=== PATIENT | female | born 1955 | race Caucasian/White ===

== ENCOUNTER 2019-11-02 06:38 | Inpatient (IN) | payer MEDICARE, SELFPAY ==
[2019-11-02] VITALS (9 sets, daily range): BP systolic 119–167; BP diastolic 56–92; PULSE 61–107; RESP 13–25; TEMP 36.1–37.2; O2SAT 85–100; BMI 36.3
--- NOTE | ~2019-11-02 | XR_ITS ---
EXAMINATION: XR sm bowel follow through WS DATE: 11/03/2019 10:10 INDICATION: Small bowel obstruction TECHNIQUE: Equipment Operator radiograph of the abdomen was obtained. Oral contrast was administered, and sequent ial radiographs of the abdomen were obtained until oral contrast was noted to be in the proximal colo n. COMPARISON: CT dated 11/02/2019 FINDINGS: Equipment Operator radiograph demonstrates nasogastric tube tip projecting over the proximal body of the stomach. Cholecystectomy clips in right upper quadrant. 6 mm stone at the lower pole of the right kidney. Excr eted contrast in the bladder from the prior contrast enhanced CT. Right-sided pain pump with intrathe robinson catheter which projects over the lumbar and lower thoracic spine with distal tip collimated beyon d the cephalad margin of the [id number]. Small amount of gas within nondilated small bowel. Small amount of stool at the cecum. Transit time from the stomach to proximal colon was approximately 1 hour and 15 minutes. There is nor mal caliber and mucosal fold pattern throughout the small bowel. Terminal ileum is normal. IMPRESSION: 1. Unremarkable small bowel follow-through. 2. Right nephrolithiasis. Reviewed, dictated and finalized at location A.
--- NOTE | ~2019-11-02 | XR_ITS ---
EXAMINATION: XR abdomen NG/feed tube insert INDICATION: Nasogastric tube insertion TECHNIQUE: Portable AP KUB-[id number] at 0910 hours COMPARISON: None available FINDINGS: The nasogastric tube is in the stomach. There are multiple mildly dilated loops of small luis wel in the mid abdomen. Contrast from earlier CT examination partially opacifies the urinary tract. C holecystectomy clips are noted in the right upper quadrant. There is a pain pump catheter projecting over the central spinal canal ending with its tip at the level of the T9 vertebral body. IMPRESSION: 1. Nasogastric tube in the stomach. 2. Dilated small bowel, consistent with ileus versus obstruction. Reviewed, dictated and finalized at location A.
--- NOTE | ~2019-11-02 | XR_ITS ---
EXAMINATION: XR abdomen obstructive series DATE: 11/04/2019 09:00 INDICATION: Nausea, recent small bowel obstruction TECHNIQUE: Upright and supine views of the abdomen were obtained. COMPARISON: 11/03/2019 FINDINGS: Enteric contrast from yesterday's small bowel follow-through partially opacifies the colon. The nasogastric tube is in the stomach. No persistently dilated loops of small bowel are seen. Contr ast material is seen at the level of the rectum. Pain catheter pump tubing projects over the T9 verte bral body. There is severe left and moderate right hip osteoarthritis. IMPRESSION: 1. Nonobstructive bowel gas pattern. Reviewed, dictated and finalized at location A.
--- NOTE | ~2019-11-02 | XR_ITS ---
EXAMINATION: XR chest 2V DATE: 11/03/2019 14:15 INDICATION: Increasing shortness of breath requiring supplemental oxygen TECHNIQUE: PA and lateral views of the chest were obtained. COMPARISON: Chest radiograph dated 07/06/2019 FINDINGS: Mild blunting at the right posterior sulcus which could represent atelectasis or tiny pleural effusio n. Remainder of the lungs are clear. No pulmonary edema or pneumothorax. The cardiomediastinal silhou ette is normal. Nasogastric tube with distal tip in proximal side port in the body of the stomach. Ch olecystectomy clips in the right upper quadrant. Oral contrast material in the colon from earlier sma ll bowel follow-through. IMPRESSION: 1. Mild atelectasis versus tiny pleural effusion at the right posterior sulcus. Reviewed, dictated and finalized at location A.
--- NOTE | ~2019-11-02 | CT_ITS ---
EXAMINATION: CT abdomen pelvis w con INDICATION: Periumbilical pain, nausea TECHNIQUE: Computed tomographic images of the abdomen and pelvis were obtained after the administrati on of 100 cc of Omnipaque 350 intravenous contrast. The dose-length product (DLP) was 1262.32 mGy-cm. Automated exposure control and iterative reconstruction technique were employed. COMPARISON: 09/13/2007 FINDINGS: The lung bases are clear. The heart size is normal. The gallbladder is surgically absent. T here is mild enlargement of the common bile duct and central intrahepatic ducts which is likely due t o post cholecystectomy state. There is a small sliding hiatal hernia. There are multiple chronic hypo attenuating lesions of the spleen which likely represent hemangiomas or lymphangiomas. The pancreas a nd adrenal glands are normal. There is calcified atherosclerosis of the aorta and many of the other a rteries. No pathologically enlarged abdominal or pelvic lymph nodes are identified. There are mildly dilated small bowel loops in the midabdomen. There is minimal edema is present in the small bowel mes entery. There is relative change in caliber of the small bowel in the right pelvis beyond which the d istal small bowel and colon are decompressed. There is no free intraperitoneal gas. There is a chroni c burst fracture of L1. A pain pump is implanted in the right abdominal subcutaneous tissues with the catheter ending in the central spinal canal at the level of the T9 vertebral body. There is moderate lumbar spondylosis. IMPRESSION: 1. Mildly dilated small bowel consistent with ileus versus partial obstruction. Reviewed, dictated and finalized at location A.
[2019-11-02] MEDS: MORPHINE SULFATE 4 MG/ML INJ IV PUSH ×2 (07:05→10:42)
[2019-11-02] MEDS: ONDANSETRON INJ 4 MG/2 ML VIAL IV PUSH ×2 (07:05→20:09)
[2019-11-02 07:09] LABS: Basophils Absolute Auto 0.1 K/mm3 (0.0-0.1); Basophils Percent Auto 0.6 % (0.2-1.2); Eosinophils Absolute Auto 0.2 K/mm3 (0-0.3); Eosinophils Percent Auto 1.8 % (0-4.4); Hematocrit 45.2 % (37.0-47.0); Hemoglobin 14.4 g/dL (12.0-15.0); Immature Granulocyte Absolute 0.03 K/mm3 (0.00-0.031); Immature Granulocyte Percent A 0.2 % (0-0.5); Lymphocytes Absolute Auto 2.28 K/mm3 (0.9-3.2); Lymphocytes Percent Auto 17.6 % (18.3-44.2); Mean Corpuscular HGB Conc 31.9 g/dl (32-36); Mean Corpuscular Hemoglobin 29.4 pg (26-34); Mean Corpuscular Volume 92.4 fl (80-100); Mean Platelet Volume 9.9 fl (7.4-10.4); Monocytes Absolute Auto 0.9 K/mm3 (0.1-0.6); Monocytes Percent Auto 6.7 % (2.6-8.5); Neutrophils Absolute Auto 9.5 K/mm3 (1.3-6.7); Neutrophils Percent Auto 73.1 % (45.5-73.1); Platelet Count Result 293 k/mm3 (150-375); Red Blood Count 4.89 M/mm3 (4.2-5.4); Red Cell Distribution Width 13.7 % (11.5-14.5)
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
[2019-11-02 07:21] LABS: Alanine Aminotransferase 14 U/L (4-35); Albumin Level 4.4 g/dL (3.5-5.1); Alkaline Phosphatase 95 U/L (38-126); Aspartate Amino Transferase 26 U/L (14-36); Bilirubin,Total 0.6 mg/dL (0.2-1.3); Blood Urea Nitrogen 18 mg/dL (7-17); Carbon Dioxide 32 mmol/L (22-30); Chloride 98 mmol/L (98-107); Estimated Glomerular Filt Rate 50; Glucose 217 mg/dL (65-105); Lipase 52 U/L (23-300); Potassium 3.6 mmol/L (3.4-5.0); Sodium 139 mmol/L (137-145)
[2019-11-02 07:26] LABS: Add Urine Microscopic? YES; Appearance Urine Clear (Clear); Bacteria Urine Trace /hpf; Bilirubin Urine Negative (Negative); Color Urine Yellow (Yellow); Glucose Urine UA Negative (Negative); Ketones Urine Negative (Negative); Leukocyte Esterase Ur 2+ LEU/UL (Negative); Mucus Urine Moderate /lpf; Nitrate Urine Positive (Negative); Protein Urine 1+ mg/dL (Negative); Specific Grav Ur 1.019 (1.001-1.035); Squamous Epithelial Cell Urine Rare /hpf (Few); Urobilinogen Urine Negative mg/dL (<2.0); WBC Urine >75 /hpf
[2019-11-02 07:27] LABS: Blood Urine Negative (Negative)
[2019-11-02] MEDS: BENZOCAINE/TETRACAINE SPRAY (*SP) 56 ML AEROSOL 1 SPRAY (09:00)
--- NOTE | 2019-11-02 11:24 | ADMGEN ---
This patient, Petty Marsh, was admitted to Medical Room 243-. Patient/family oriented to hospital policies and general routines including ID bracelet, bed and alarms, visiting hours, pain management, procedures, bathroom and other care routines, personal items, smoking policy, room service/diet, and visiting hours. Valuables list has been completed. Information on how to activate the Rapid Response Team has been discussed. Patient/Family are encouraged to report perceived risks to care and to ask questions if they do not understand what they are told or what they should do.
[2019-11-02] MEDS: SODIUM CHLORIDE 0.9% IV 1,000 ML 125 ML IV CONT ×2 (11:56→20:03)
--- NOTE | 2019-11-02 12:30 | ECG_ITS ---
Measurements Intervals [place] Rate: 102 P: 49 [place]: 148 QRS: 19 QRSD: 86 T: 46 QT: 330 QTc: 431 Interpretive Statements SINUS TACHYCARDIA DELAYED PRECORDIAL R/S TRANSITION ABNORMAL ECG Electronically Signed On 11-02-2019 13:59:33 CDT by Yvon Singleton D.O.
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
[2019-11-02 15:30] LABS: Hemoglobin A1C 5.7 % (<5.7)
--- NOTE | 2019-11-02 17:23 | PM.CNGS ---
Assessment and Plan Assessment and plan (1) Partial obstruction of small intestine: Onset Date: ~11/02/19 Code(s): K56.600 - Partial intestinal obstruction, unspecified as to cause Status: Acute Assessment and Plan: Since patient has partial small-bowel obstruction versus ileus I agree with proceeding to a Gastrografin small-bowel follow-through tomorrow through the NG tube. Will follow with you. This ileus could be secondary to her urinary tract infection. (2) UTI (urinary tract infection): Onset Date: Unknown Code(s): N39.0 - Urinary tract infection, site not specified Status: Acute Assessment and Plan: Urine culture pending and I agree with starting antibiotics. This may be the source of her ileus. (3) Diabetes: Onset Date: Unknown Code(s): E11.9 - Type 2 diabetes mellitus without complications Status: Chronic (4) Restless leg syndrome: Onset Date: Unknown Code(s): G25.81 - Restless legs syndrome Status: Acute (5) Chronic obstructive pulmonary disease, unspecified: Onset Date: Unknown Code(s): J44.9 - Chronic obstructive pulmonary disease, unspecified Status: Chronic (6) Dyslipidemia: Onset Date: Unknown Code(s): E78.5 - Hyperlipidemia, unspecified Status: Acute (7) Chronic diastolic (congestive) heart failure: Onset Date: Unknown Code(s): I50.32 - Chronic diastolic (congestive) heart failure Status: Chronic Assessment and Plan: Hospitalist is monitoring and will return to her usual medicines when NG tube is removed. (8) Essential (primary) hypertension: Onset Date: Unknown Code(s): I10 - Essential (primary) hypertension Status: Acute Assessment and Plan: Hospitalist is following and she will resume her usual meds when the NG tube was removed. (9) Obesity (BMI 35.0-39.9 without comorbidity): Code(s): E66.9 - Obesity, unspecified Status: Acute Assessment and Plan: Patient states she has lost some weight over the last 2 years. Apparently her heart failure has improved over that time also. History of Present Illness Consult details Consult date: 11/03/19 Reason for consult: other (Ileus versus partial small bowel obstruction by CT) Requesting physician: Larisa Monae NP Narrative: Mrs Petty Marsh is a 64 year old white female who has a history of having chronic back pain and has a pain pump. She has baclofen and hydromorphone in her pain pump. She has not had any prior history of problems with small-bowel obstruction. Nor has she had any problem with constipation. The patient had severe epigastric and periumbilical discomfort starting last night. She had some nausea and vomiting as well. She stated that she had a normal bowel movement today. Her pain got worse with movement and lying still helped her pain. She did not take any other medications nor did she take any of her routine medications today. Patient had a CT of the abdomen pelvis with contrast today during her evaaluation in the ED which was read as mildly dilated mid small bowel consistent with ileus versus partial obstruction. The distal half the small bowel and the colon were decompressed. Also noted was some mild edema of the small bowel mesentery. An NG tube was placed in the left nare. Labs were fairly unremarkable with fairly normal electrolytes however she had a significant abnormal UA showing 75 WBCs per high-power field and 2+ leukocyte esterase . She was given Zofran, morphine, and started on ceftriaxone for urinary tract infection in the emergency room. Review of Systems Constitutional: Constitutional: Reports as per HPI and Denies headache(s) Eyes: Eyes: Denies loss of vision and Denies eye pain ENT: Reports Normal hearing present, Denies change in voice, Denies dizziness and Denies headache(s) Cardiovascular: Cardiovascular: Denies chest zoey
[2019-11-02 18:13] LABS: Glucose Point of Care 87 (65-105)
[2019-11-03 00:30] LABS: Glucose Point of Care 88 (65-105)
[2019-11-03 04:00] VITALS: BP 122/58; PULSE 76; RESP 22; TEMP 37.3; O2SAT 95
[2019-11-03] MEDS: SODIUM CHLORIDE 0.9% IV 1,000 ML 125 ML IV CONT (04:51)
[2019-11-03] MEDS: MORPHINE SULFATE 4 MG/ML INJ IV PUSH ×2 (04:53→09:34)
[2019-11-03 05:03] LABS: Basophils Percent Auto 0.4 % (0.2-1.2); Eosinophils Absolute Auto 0.1 K/mm3 (0-0.3); Hematocrit 41.2 % (37.0-47.0); Immature Granulocyte Absolute 0.03 K/mm3 (0.00-0.031); Immature Granulocyte Percent A 0.3 % (0-0.5); Lymphocytes Absolute Auto 1.61 K/mm3 (0.9-3.2); Lymphocytes Percent Auto 16.5 % (18.3-44.2); Mean Corpuscular HGB Conc 31.6 g/dl (32-36); Mean Corpuscular Hemoglobin 29.9 pg (26-34); Mean Corpuscular Volume 94.7 fl (80-100); Monocytes Percent Auto 9.8 % (2.6-8.5); Platelet Count Result 244 k/mm3 (150-375); Red Blood Count 4.35 M/mm3 (4.2-5.4); Red Cell Distribution Width 13.8 % (11.5-14.5); White Blood Count 9.8 K/mm3 (4.5-10.0)
[2019-11-03 05:16] LABS: Alanine Aminotransferase 13 U/L (4-35); Albumin Level 3.5 g/dL (3.5-5.1); Alkaline Phosphatase 60 U/L (38-126); Aspartate Amino Transferase 23 U/L (14-36); Bilirubin,Total 0.7 mg/dL (0.2-1.3); Blood Urea Nitrogen 16 mg/dL (7-17); Carbon Dioxide 35 mmol/L (22-30); Chloride 103 mmol/L (98-107); Estimated CRCL calculation 58 ml/min; Estimated Glomerular Filt Rate > 60; Glucose 103 mg/dL (65-105); Magnesium 2.2 mg/dL (1.6-2.3); Sodium 142 mmol/L (137-145)
[2019-11-03 06:16] LABS: Glucose Point of Care 99 (65-105)
[2019-11-03 06:33] LABS: Thyroid Stimulating Hormone Reflex 0.185 uIU/mL (0.465-4.68)
[2019-11-03 08:17] LABS: Glucose Point of Care 84 (65-105)
[2019-11-03] MEDS: ONDANSETRON INJ 4 MG/2 ML VIAL IV PUSH (09:31)
--- NOTE | 2019-11-03 10:30 | PM.PNGS ---
Progress Note: A&P Assessment and Plan (1) Obesity (BMI 35.0-39.9 without comorbidity): Onset Date: Unknown Code(s): E66.9 - Obesity, unspecified Status: Acute Assessment and Plan: Will need to continue to follow a low-fat heart healthy diet at home to have best results. (2) UTI (urinary tract infection): Onset Date: Unknown Code(s): N39.0 - Urinary tract infection, site not specified Status: Acute Assessment and Plan: On ceftriaxone IV. Hospitalist will follow and adjust. (3) Diabetes: Onset Date: Unknown Code(s): E11.9 - Type 2 diabetes mellitus without complications Status: Chronic Assessment and Plan: Hospitalist is following this and will adjust meds. (4) Chronic obstructive pulmonary disease, unspecified: Onset Date: Unknown Code(s): J44.9 - Chronic obstructive pulmonary disease, unspecified Status: Chronic Assessment and Plan: will resume home meds and inhalers. (5) Dyslipidemia: Onset Date: Unknown Code(s): E78.5 - Hyperlipidemia, unspecified Status: Acute Assessment and Plan: Will resume home meds when tolerating a diet (6) Chronic diastolic (congestive) heart failure: Onset Date: Unknown Code(s): I50.32 - Chronic diastolic (congestive) heart failure Status: Chronic Assessment and Plan: Patient was on something at home for this and these will probably be restarted which she is tolerating a diet. (7) Essential (primary) hypertension: Onset Date: Unknown Code(s): I10 - Essential (primary) hypertension Status: Acute Assessment and Plan: Hospitalist will be following this problem and adjusting meds. Additional Plan patient's small-bowel obstruction or partial small-bowel obstruction has now been ruled out. (Transit time from the stomach to proximal colon was approximately 1 hour and 15 minutes. There is normal caliber and mucosal fold pattern throughout the small bowel. Terminal ileum is normal. IMPRESSION: 1. Unremarkable small bowel follow-through. 2. Right nephrolithiasis.) Would recommend leaving NG to low intermittent suction until nausea passes. This may be related to some residual dye from her upper GI study. Once this is resolved could consider removal of the NG and try slowly advancing diet starting with clears. I will be off this weekend. I will ask Dr. Guerra to follow with you. Subjective Subjective Date/Time Seen: 11/03/19 10:30 Interval history: Patient lying in bed with NG tube clamped when I entered the room. She is complaining about nausea and cramping in the abdomen. Some right-sided back pain. Has already had 1 loose stool since returning to her room after her small-bowel follow-through. Complaining of some nausea also. Review of Systems Constitutional: Constitutional: Reports no additional constitutional complaints ENT: Reports other (Mucous Membranes moist.) Cardiovascular: Cardiovascular: Denies dyspnea Respiratory: Respiratory: Denies pain on inspiration and Denies dyspnea Gastrointestinal: Gastrointestinal: Reports bloating and Reports GI cramping ( Upper mid abdomen) Genitourinary: Comments: known UTI, See UA from yesterday. Musculoskeletal: Musculoskeletal: Reports other (No calf swelling or edema) Integumentary/Breasts: Skin/Breast: Reports system reviewed and no additional complaints, except as docu Neurologic: Comments: Some complaints of back pain. But patient has chronic back pain on a at baseline. Exam Const: General: cooperative, no acute distress, alert and awake Orientation/consciousness: patient oriented x3 HENMT: Mouth: Yes moist mucous membranes Neck: Neck: normal visual inspection Chest: Chest palpation & inspection: normal inspection of the chest Resp: Effort & Inspection: normal respiratory effort Auscultation: clear to auscultation bilaterally
[2019-11-03 11:25] LABS: Glucose Point of Care 141 (65-105)
[2019-11-03 12:00] LABS: Free T4 Free Thyroxine Reflex 0.94 ng/dL (0.78-2.19)
[2019-11-03 12:58] LABS: Total Triiodothyronine (T3) 1.02 NG/ML (0.97-1.69)
[2019-11-03 13:41] VITALS: O2SAT 95
[2019-11-03 13:49] VITALS: BP 114/54; PULSE 100; RESP 22; TEMP 36.2; O2SAT 96
--- NOTE | 2019-11-03 13:58 | PM.IMPN ---
Progress Note: A&P Assessment and Plan (1) Small bowel obstruction: Code(s): K56.609 - Unspecified intestinal obstruction, unspecified as to partial versus complete obstruction Status: Ruled-out Assessment and Plan: Patient has NG tube and is NPO at this time. SBFT unremarkable for obstruction. Having BMs since testing. She is still having abdominal pain, but not as nauseated. Surgery is following and appreciate recommendations Will continue with NGT Stop IVF now as to not fluid overload; consider resuming tomorrow if still on NPO status Pain medications, antiemetics as needed (2) UTI (urinary tract infection): Onset Date: Unknown Code(s): N39.0 - Urinary tract infection, site not specified Status: Acute Assessment and Plan: WBC lowered to 9.8k today. Patient was symptomatic, but has improved Continue with ceftriaxone UC pending; tailor antibiotics to culture/sensitivities (3) Essential (primary) hypertension: Onset Date: Unknown Code(s): I10 - Essential (primary) hypertension Status: Acute Assessment and Plan: BP 110s sys this afternoon P.r.n. hydralazine as the patient is NPO. Resume antihypertensives once off NPO status (4) Depression: Code(s): F32.9 - Major depressive disorder, single episode, unspecified Status: Chronic Assessment and Plan: No acute issues at this time Bupropion is on hold at this time due to NPO status (5) Diabetes: Onset Date: Unknown Code(s): E11.9 - Type 2 diabetes mellitus without complications Status: Chronic Assessment and Plan: Patient stated that her last A1c was 4.8 and she does not understand why she still on metformin. BGL 80s-140s today Her metformin is on hold and will likely resume on discharge Accuchecks ACHS, hypoglycemia protocol, correctional insulin, diabetic diet (6) GINA on CPAP: Code(s): G47.33 - Obstructive sleep apnea (adult) (pediatric); Z99.89 - Dependence on other enabling machines and devices Status: Chronic Assessment and Plan: Nursing weaned to 2.5L O2 NC during visit. Patient typically wears a CPAP machine at night. Crackles noted on exam, could be slight volume overload vs atelectasis due to decreased deep inspirations due to pain vs COPD although no wheezing noted. Will do CXR to rule out other etiology for increased O2 demands, but patient is weaning down CPAP once NGT removed (7) Chronic obstructive pulmonary disease, unspecified: Onset Date: Unknown Code(s): J44.9 - Chronic obstructive pulmonary disease, unspecified Status: Chronic Assessment and Plan: Continue with her inhalers as prescribed. (8) Chronic diastolic (congestive) heart failure: Onset Date: Unknown Code(s): I50.32 - Chronic diastolic (congestive) heart failure Status: Chronic Assessment and Plan: Crackles noted on exam; requiring O2, although is weaning down. Will stop IVF now Her Lasix, losartan, and spironolactone are on hold at this time; Will resume once off NPO status Consider IV lasix Subjective Date/time seen: 11/03/19 13:58 Interval history: Patient is a 64 yo F with history of CHF, COPD, DM, HTN, among other comorbidities who is here for possible ileus vs SBO. Patient states she is feeling better today, although this morning was feeling nauseas after SBF study. She has had BMs since the study; nonbloody, nonmelenic. She still has some slight abdominal pain. Earlier she did have pain radiating to her upper back between her shoulder blades, but was brief and has since subsided. She feels slightly short of br
[2019-11-03 18:23] LABS: Glucose Point of Care 83 (65-105)
[2019-11-03 22:00] VITALS: BP 133/63; PULSE 92; RESP 16; TEMP 36.2; O2SAT 94
[2019-11-03 23:44] LABS: Glucose Point of Care 76 (65-105)
[2019-11-04 04:56] LABS: Hemoglobin 13.2 g/dL (12.0-15.0); Mean Corpuscular HGB Conc 31.4 g/dl (32-36); Mean Corpuscular Hemoglobin 29.7 pg (26-34); Mean Corpuscular Volume 94.6 fl (80-100); Mean Platelet Volume 9.7 fl (7.4-10.4); Platelet Count Result 232 k/mm3 (150-375); Red Blood Count 4.44 M/mm3 (4.2-5.4); Red Cell Distribution Width 13.5 % (11.5-14.5)
[2019-11-04 05:11] LABS: Alanine Aminotransferase 11 U/L (4-35); Albumin Level 3.6 g/dL (3.5-5.1); Alkaline Phosphatase 58 U/L (38-126); Aspartate Amino Transferase 21 U/L (14-36); Bilirubin,Total 0.5 mg/dL (0.2-1.3); Blood Urea Nitrogen 19 mg/dL (7-17); Calcium 9.1 mg/dL (8.4-10.2); Carbon Dioxide 33 mmol/L (22-30); Chloride 104 mmol/L (98-107); Estimated CRCL calculation 65 ml/min; Estimated Glomerular Filt Rate > 60; Glucose 86 mg/dL (65-105); Lipase 91 U/L (23-300); Magnesium 2.3 mg/dL (1.6-2.3); Potassium 3.6 mmol/L (3.4-5.0); Sodium 141 mmol/L (137-145)
[2019-11-04 06:00] VITALS: BP 129/55; PULSE 73; RESP 20; TEMP 36.4; O2SAT 98
[2019-11-04 06:49] LABS: Glucose Point of Care 77 (65-105)
[2019-11-04 08:46] VITALS: O2SAT 92
[2019-11-04 12:40] LABS: Glucose Point of Care 102 (65-105)
--- NOTE | 2019-11-04 12:51 | PM.PNGS ---
Progress Note: A&P Assessment and Plan (1) Partial obstruction of small intestine: Onset Date: ~11/02/19 Code(s): K56.600 - Partial intestinal obstruction, unspecified as to cause Status: Ruled-out Assessment and Plan: Advance diet as tolerated. Home after tolerating regular diet. Subjective Subjective Date/Time Seen: 11/04/19 12:51 Bowels moving and tolerating clear liquids. NG removed this morning. Patient denies any nausea or bloating. Exam GI: Inspection: normal to inspection GI Palp: Yes Soft to palpation and No Tenderness to palpation present (GI) Auscultation: normal bowel sounds Objective Data Vital Signs Vital Signs: Vital Signs - 24 hr 11/03/19 13:41 11/03/19 13:49 11/03/19 22:00 Temperature 36.2 C L 36.2 C L Pulse Rate 100 92 Respiratory Rate 22 H 16 Blood Pressure 114/54 L 133/63 Pulse Oximetry 95 96 94 11/04/19 06:00 11/04/19 08:46 Temperature 36.4 C L Pulse Rate 73 Respiratory Rate 20 Blood Pressure 129/55 L Pulse Oximetry 98 92 Intake/Output Intake/Output: Intake & Output 11/01/19 11/02/19 11/03/19 11/04/19 23:59 23:59 23:59 23:59 Intake Total 1150 1860 Output Total 600 1525 600 Balance 550 335 -600 Meds/Results Medications: Active Medications Generic Name Dose Route Start Last Admin Trade Name Freq PRN Reason Stop Dose Admin Albuterol 2 puff 11/02/19 14:36 Proventil Hfa INHALATION QID PRN Shortness Of Breath Budesonide/Formoterol Fumarate 2 puff 11/02/19 20:00 11/04/19 08:40 Symbicort 160-4.5 Mcg (*Sp) Inhaler INHALATION 2 puff Q12HRT TRACEY Administration Dextrose 12.5 gm 11/02/19 14:28 Dextrose 50% Syringe IV PUSH PRN PRN Hypoglycemia Protocol Glucagon 1 mg 11/02/19 14:28 Glucagon For Inj IM PRN PRN Hypoglycemia Protocol Glucose 15 gm 11/02/19 14:28 Glutose 15 PO PRN PRN Hypoglycemia Protocol Hydralazine HCl 10 mg 11/02/19 14:32 Apresoline Hcl Inj IV PUSH Q8H PRN Blood Pressure - High Dextrose 1,000 mls @ 100 mls/hr 11/02/19 14:28 Dextrose 5% 1,000 Ml IVPB PRN PRN Hypoglycemia Protocol Ceftriaxone Sodium/Dextrose 1 gm in 50 mls @ 100 mls/hr 11/03/19 10:00 11/04/19 11:26 Rocephin 1 Gm/D5w 50 Ml IVPB 0 mls/hr Q24H TRACEY Infusion Acetaminophen 1,000 mg in 100 mls @ 400 mls/hr 11/03/19 16:27 11/03/19 23:46 Ofirmev 1,000 Mg Ivpb IVPB 11/04/19 16:28 Infused Q6H PRN Infusion Pain Rated 5 or Less Insulin Aspart 2 - 5 units 11/02/19 18:00 11/04/19 06:21 Novolog SUB-Q Not Given Q6HR [facility] Protocol Morphine Sulfate 4 mg 11/03/19 16:27 Morphine Sulfate Inj IV PUSH Q2H PRN Pain Rated 6 or Greater Ondansetron HCl 4 mg 11/02/19 10:10 11/03/19 09:31 Zofran Inj IV PUSH 4 mg Q4H PRN Administration Nausea Radiology Results: ITS Impressions Abdomen/Pelvis CT 11/02/19 07:48 IMPRESSION: 1. Mildly dilated small bowel consistent with ileus versus partial obstruction. Small Bowel X-Ray 11/03/19 10:12 IMPRESSION: 1. Unremarkable small bowel follow-through. 2. Right nephrolithiasis. Chest X-Ray 11/03/19 14:56 IMPRESSION: 1. Mild atelectasis versus tiny pleural effusion at the right posterior sulcus. Abdomen X-Ray 11/04/19 09:30 IMPRESSION: 1. Nonobstructive bowel gas pattern. Labs Labs: Laboratory Results - last 24 hr 11/03/19 11/03/19 11/03/19 04:42 18:20 23:30 WBC RBC Hgb Hct MCV MCH MCHC RDW Plt Count MPV Sodium Potassium Chloride Carbon Dioxide BUN Creatinine Estim Creat Clear Calc Estimated GFR Glucose POC Capillary Glucose 83 76 Calcium Magnesium Total Bilirubin AST ALT Alkaline Phosphatase Total Protein Albumin Lipase Total T3 1.02 11/04/19 11/04/19 11/04/19 04:44 04:44 06:2
--- NOTE | 2019-11-04 13:02 | PM.IMPN ---
Progress Note: A&P Assessment and Plan (1) Ileus: Code(s): K56.7 - Ileus, unspecified Status: Acute Assessment and Plan: Ileus vs less likely SBO, although further imaging does not suggest this. Patient clinically improved today. NGT removed. Tolerating CLD thus far. Imaging today shows no evidence of obstruction. Surgery is following and appreciate recommendations Diet will be advanced as tolerated Likely discharge tomorrow if still clinically improving. Likely discharge on soft diet for about a week after discharge Pain medications, antiemetics as needed Monitor (2) UTI (urinary tract infection): Onset Date: Unknown Code(s): N39.0 - Urinary tract infection, site not specified Status: Acute Assessment and Plan: WBC lowered to 11.0k today. Patient was symptomatic, but has improved. UC grew E. coli sensitive to Rocephin. Ceftriaxone #3, will switch to cefdinir tomorrow and complete treatment through 11/07 f/u with PCP (3) Essential (primary) hypertension: Onset Date: Unknown Code(s): I10 - Essential (primary) hypertension Status: Acute Assessment and Plan: BP 120s sys this afternoon Resume antihypertensives tomorrow Monitor (4) Depression: Code(s): F32.9 - Major depressive disorder, single episode, unspecified Status: Chronic Assessment and Plan: No acute issues at this time Bupropion resumed today (5) Diabetes: Onset Date: Unknown Code(s): E11.9 - Type 2 diabetes mellitus without complications Status: Chronic Assessment and Plan: Patient stated that her last A1c was 4.8; 5.7 this hospital stay. BGL 70s-100s today Her metformin is on hold and will likely resume on discharge Accuchecks ACHS, hypoglycemia protocol, correctional insulin, diabetic diet during stay F/u with PCP (6) GINA on CPAP: Code(s): G47.33 - Obstructive sleep apnea (adult) (pediatric); Z99.89 - Dependence on other enabling machines and devices Status: Chronic Assessment and Plan: Patient is now on RA. CXR showed mild atelectasis vs tiny pleural effusion. CPAP tonight Monitor respiratory status (7) Chronic obstructive pulmonary disease, unspecified: Onset Date: Unknown Code(s): J44.9 - Chronic obstructive pulmonary disease, unspecified Status: Chronic Assessment and Plan: Continue with her inhalers as prescribed. (8) Chronic diastolic (congestive) heart failure: Onset Date: Unknown Code(s): I50.32 - Chronic diastolic (congestive) heart failure Status: Chronic Assessment and Plan: Lung exam improved. On RA today. Resume home medications Monitor volume status Subjective Date/time seen: 11/04/19 13:02 Interval history: Patient is a 64 yo F with history of CHF, COPD, DM, HTN, among other comorbidities who is here for possible ileus vs SBO. Patient states she is feeling much better today. Her NGT was removed this morning and is tolerating CLD thus far; no N/V. Pain has much improved. She has had BMs yesterday; nonbloody, nonmelenic. She feels slightly short of breath, but is now on RA. She does note some dysuria earlier in stay, but this has improved. Denies f/c/s, cp/palpitations, cough, n/v/c, melena, BRBPR, dysuria, hematuria calf pain/swelling. Review of Systems Review of Systems: All systems reviewed & are unremarkable except as noted in HPI and below Exam Narrative: Exam Narrative: Patient sitting upright in chair at time of visit Const: General: cooperative, comfortable, no acute distress, well developed, alert and awake Nutritional Appearance: obese m
[2019-11-04 14:00] VITALS: BP 152/68; PULSE 82; RESP 18; TEMP 36.3; O2SAT 97
--- NOTE | 2019-11-04 16:25 | PC.NURSE ---
Notified MARYCRUZ Harmon that patient's IV was infiltrated. This IV was inserted with US by Nando the nursing crossing supervisor. MARYCRUZ Prado is okay with leaving the IV access out until tomorrow and will reassess if patient needs anything intravenously.
[2019-11-04] MEDS: ACETAMINOPHEN 325 MG TABLET 650 MG PO (16:31)
[2019-11-04] MEDS: buPROPion HCL XL (24 HR) 150 MG TABCR PO (16:32)
--- NOTE | 2019-11-04 17:38 | PC.NURSE ---
Patient's blood glucose was 62. Patient refused oral glucose gel. 4 ounces of apple juice was given. Will reassess in 15 minutes.
[2019-11-04 17:46] LABS: Glucose Point of Care 62 (65-105)
--- NOTE | 2019-11-04 17:58 | PC.NURSE ---
After 4 ounces of apple juice patient's blood glucose was 84.
[2019-11-04 21:22] LABS: Glucose Point of Care 115 (65-105)
[2019-11-04 22:00] VITALS: BP 127/47; PULSE 78; RESP 18; TEMP 36.6; O2SAT 96
[2019-11-05 00:32] LABS: Glucose Point of Care 84 (65-105)
[2019-11-05 05:13] LABS: Hematocrit 39.6 % (37.0-47.0); Hemoglobin 12.9 g/dL (12.0-15.0); Mean Corpuscular HGB Conc 32.6 g/dl (32-36); Mean Corpuscular Hemoglobin 29.6 pg (26-34); Mean Corpuscular Volume 90.8 fl (80-100); Mean Platelet Volume 9.7 fl (7.4-10.4); Platelet Count Result 235 k/mm3 (150-375); Red Blood Count 4.36 M/mm3 (4.2-5.4); Red Cell Distribution Width 13.2 % (11.5-14.5); White Blood Count 11.1 K/mm3 (4.5-10.0)
[2019-11-05 05:27] LABS: Blood Urea Nitrogen 19 mg/dL (7-17); Calcium 9.2 mg/dL (8.4-10.2); Carbon Dioxide 37 mmol/L (22-30); Chloride 95 mmol/L (98-107); Estimated CRCL calculation 65 ml/min; Estimated Glomerular Filt Rate > 60; Glucose 91 mg/dL (65-105); Magnesium 1.9 mg/dL (1.6-2.3); Potassium 3.3 mmol/L (3.4-5.0); Sodium 136 mmol/L (137-145)
[2019-11-05 06:00] VITALS: BP 129/53; PULSE 63; RESP 20; TEMP 36.6; O2SAT 98
[2019-11-05 07:49] VITALS: O2SAT 93
[2019-11-05 08:04] LABS: Glucose Point of Care 93 (65-105)
--- NOTE | 2019-11-05 08:17 | P.DS_ITS ---
DS: Diagnosis Admitting Diagnosis Admitting Diagnosis: Unspecified intestinal obstruction, unspecified as to parti al versus complete obstruction Discharge Diagnosis (1) Small bowel obstruction: Code(s): K56.609 - Unspecified intestinal obstruction, unspecified as to partial versus complete obstruction Status: Ruled-out Assessment and Plan: Ileus vs SBO. Patient clinically improved again today. Tolerating FLD yesterday. Willing to try soft diet today. Imaging yesterday shows no evidence of obstruction. Surgery is following and appreciate recommendations * Diet will be advanced as tolerated * If tolerating soft diet this morning, will discharge today back home * Discharge on soft/diabetic diet for about a week after discharge * Pain medications, antiemetics as needed during stay * Monitor (2) UTI (urinary tract infection): Onset Date: Unknown Code(s): N39.0 - Urinary tract infection, site not specified Status: Acute Assessment and Plan: WBC stable at 11.1k today. Patient was symptomatic, but has improved. UC grew E. coli sensitive to Rocephin. * Cefdinir initiated today; will complete treatment through 11/07 * CBC next week * f/u with PCP (3) Essential (primary) hypertension: Onset Date: Unknown Code(s): I10 - Essential (primary) hypertension Status: Acute Assessment and Plan: BP 120s sys this afternoon * Resume antihypertensives today * Monitor (4) Depression: Code(s): F32.9 - Major depressive disorder, single episode, unspecified Status: Chronic Assessment and Plan: No acute issues at this time * Bupropion continued (5) Diabetes: Onset Date: Unknown Code(s): E11.9 - Type 2 diabetes mellitus without complications Status: Chronic Assessment and Plan: Patient stated that her last A1c was 4.8; 5.7 this hospital stay. BGL 90s today * Her metformin is on hold and will likely resume on discharge * Accuchecks ACHS, hypoglycemia protocol, correctional insulin, diabetic diet during stay * F/u with PCP (6) GINA on CPAP: Code(s): G47.33 - Obstructive sleep apnea (adult) (pediatric); Z99.89 - Dependence on other enabling machines and devices Status: Chronic Assessment and Plan: Patient is now on RA. CXR showed mild atelectasis vs tiny pleural effusion. * Continue home CPAP at discharge (7) Chronic obstructive pulmonary disease, unspecified: Onset Date: Unknown Code(s): J44.9 - Chronic obstructive pulmonary disease, unspecified Status: Chronic Assessment and Plan: * Continue with her inhalers as prescribed. (8) Chronic diastolic (congestive) heart failure: Onset Date: Unknown Code(s): I50.32 - Chronic diastolic (congestive) heart failure Status: Chronic Assessment and Plan: Lung exam improved. On RA today. * Continue home medications * Monitor volume status DS: Summary Hospital Course Reason for hospitalization: SBO vs ileus Hospital Course: Patient is a 64 yo F with history of CHF, COPD, DM, HTN, chronic back pain with pain pump, among other comorbidities who presented to the ER on 11/01 with complaints of severe abdominal pain that started the night prior. Patient had associated N/V.
--- NOTE | 2019-11-05 08:17 | PM.DS ---
DS: Diagnosis Admitting Diagnosis Admitting Diagnosis: Unspecified intestinal obstruction, unspecified as to partial versus complete obstruction Discharge Diagnosis (1) Small bowel obstruction: Code(s): K56.609 - Unspecified intestinal obstruction, unspecified as to partial versus complete obstruction Status: Ruled-out Assessment and Plan: Ileus vs SBO. Patient clinically improved again today. Tolerating FLD yesterday. Willing to try soft diet today. Imaging yesterday shows no evidence of obstruction. Surgery is following and appreciate recommendations Diet will be advanced as tolerated If tolerating soft diet this morning, will discharge today back home Discharge on soft/diabetic diet for about a week after discharge Pain medications, antiemetics as needed during stay Monitor (2) UTI (urinary tract infection): Onset Date: Unknown Code(s): N39.0 - Urinary tract infection, site not specified Status: Acute Assessment and Plan: WBC stable at 11.1k today. Patient was symptomatic, but has improved. UC grew E. coli sensitive to Rocephin. Cefdinir initiated today; will complete treatment through 11/07 CBC next week f/u with PCP (3) Essential (primary) hypertension: Onset Date: Unknown Code(s): I10 - Essential (primary) hypertension Status: Acute Assessment and Plan: BP 120s sys this afternoon Resume antihypertensives today Monitor (4) Depression: Code(s): F32.9 - Major depressive disorder, single episode, unspecified Status: Chronic Assessment and Plan: No acute issues at this time Bupropion continued (5) Diabetes: Onset Date: Unknown Code(s): E11.9 - Type 2 diabetes mellitus without complications Status: Chronic Assessment and Plan: Patient stated that her last A1c was 4.8; 5.7 this hospital stay. BGL 90s today Her metformin is on hold and will likely resume on discharge Accuchecks ACHS, hypoglycemia protocol, correctional insulin, diabetic diet during stay F/u with PCP (6) GINA on CPAP: Code(s): G47.33 - Obstructive sleep apnea (adult) (pediatric); Z99.89 - Dependence on other enabling machines and devices Status: Chronic Assessment and Plan: Patient is now on RA. CXR showed mild atelectasis vs tiny pleural effusion. Continue home CPAP at discharge (7) Chronic obstructive pulmonary disease, unspecified: Onset Date: Unknown Code(s): J44.9 - Chronic obstructive pulmonary disease, unspecified Status: Chronic Assessment and Plan: Continue with her inhalers as prescribed. (8) Chronic diastolic (congestive) heart failure: Onset Date: Unknown Code(s): I50.32 - Chronic diastolic (congestive) heart failure Status: Chronic Assessment and Plan: Lung exam improved. On RA today. Continue home medications Monitor volume status DS: Summary Hospital Course Reason for hospitalization: SBO vs ileus Hospital Course: Patient is a 64 yo F with history of CHF, COPD, DM, HTN, chronic back pain with pain pump, among other comorbidities who presented to the ER on 11/01 with complaints of severe abdominal pain that started the night prior. Patient had associated N/V. She had a normal BM on day of arrival, however her pain got worse day of presentation. While in the ER, CT of abd/pelvis with contrast revealed mildly dilated small bowel consistent with ileus vs partial obstruction. Patient also had complained of some dysuria and UA in ER suggestive of UTI. NGT was placed in the ER. Please see H&P for further detail Presenting VS: Temp Pulse Resp BP Pulse O
[2019-11-05] MEDS: POTASSIUM CHLORIDE 20 MEQ TABLET PO (09:24)
[2019-11-05] MEDS: SPIRONOLACTONE 25 MG TABLET PO (09:25)
[2019-11-05] MEDS: CEFDINIR 300 MG CAPSULE PO (09:25)
[2019-11-05] MEDS: FUROSEMIDE 40 MG TABLET PO (09:25)
[2019-11-05] MEDS: buPROPion HCL XL (24 HR) 150 MG TABCR PO (09:25)
[2019-11-05] MEDS: LOSARTAN POTASSIUM 50 MG TABLET PO (09:25)
[2019-11-05 11:57] LABS: Glucose Point of Care 97 (65-105)
== END 2019-11-05 13:15 | disposition home or self-care (01) | DRG 690 ==
LOC: ANHED 10:12 → ANH2MED 10:28
PROVIDERS: Nurse Practitioner; Physician Assistant; Admitting Provider Internal Medicine; Emergency Provider Emergency Medicine; PCP Family Medicine; Visit Provider Hospitalist
DX: N39.0 Urinary tract infection, site not specified (principal); I50.32 Chronic diastolic (congestive) heart failure; B96.20 Unspecified Escherichia coli [E. coli] as the cause of diseases classified elsewhere; I11.0 Hypertensive heart disease with heart failure; G47.33 Obstructive sleep apnea (adult) (pediatric); J44.9 Chronic obstructive pulmonary disease, unspecified; F32.9 Major depressive disorder, single episode, unspecified; E78.5 Hyperlipidemia, unspecified; G25.81 Restless legs syndrome; E11.9 Type 2 diabetes mellitus without complications; G89.29 Other chronic pain; M54.9 Dorsalgia, unspecified; E66.9 Obesity, unspecified; Z68.36 Body mass index [BMI] 36.0-36.9, adult; Z86.19 Personal history of other infectious and parasitic diseases; Z98.42 Cataract extraction status, left eye; Z98.41 Cataract extraction status, right eye; Z90.49 Acquired absence of other specified parts of digestive tract; Z90.710 Acquired absence of both cervix and uterus; Z87.891 Personal history of nicotine dependence; Z86.73 Personal history of transient ischemic attack (TIA), and cerebral infarction without residual deficits
CPT/HCPCS: 36415; 51701; 71046; 74019; 74177; 74250; 80048; 80053; 81001; 83036; 83690; 83735; 84439; 84443; 84480; 85025; 85027; 87077; 87086; 87088; 87186; 93005; 94640; 94660; 96365; 96375; 96376; 99285; A9270; J0131; J0696; J2270; J2405; J7030; Q9967

== ENCOUNTER 2019-11-22 14:02 | Outpatient (CLI) | payer MEDICARE, SELFPAY ==
--- NOTE | ~2019-11-22 | XR_ITS ---
EXAMINATION: XR shoulder RT min 2V DATE: 11/22/2019 14:23 INDICATION: Right shoulder pain. TECHNIQUE: 4 views of right shoulder were obtained. COMPARISON: None. FINDINGS: Bone alignment is normal. No fracture. There is mild osteoarthritis of glenohumeral joint a nd moderate osteoarthritis of acromioclavicular joint. IMPRESSION: 1. Polyarticular osteoarthritis. Reviewed, dictated and finalized at location A.
== END 2019-11-22 14:03 | disposition home or self-care (01) ==
PROVIDERS: PCP Family Medicine; Visit Provider Family Medicine
DX: M19.011 Primary osteoarthritis, right shoulder (principal)
CPT/HCPCS: 73030

== ENCOUNTER 2020-01-09 10:02 | Outpatient (CLI) | payer MEDICARE, OTHER, SELFPAY ==
[2020-01-09 12:04] LABS: Add Urine Microscopic? NO; Appearance Urine Clear (Clear); Bilirubin Urine Negative (Negative); Blood Urine Negative (Negative); Color Urine Colorless (Yellow); Glucose Urine UA Negative (Negative); Ketones Urine Negative (Negative); Leukocyte Esterase Ur Negative LEU/UL (Negative); Nitrate Urine Negative (Negative); Protein Urine Negative (Negative); Specific Grav Ur 1.008 (1.001-1.035); Urobilinogen Urine Negative mg/dL (<2.0)
[2020-01-09 12:10] LABS: Prothrombin Time 12.8 Seconds (11.1-14.7)
[2020-01-09 12:11] LABS: Partial Thromboplastin Time 28.7 SECONDS (22.3-36.8)
[2020-01-09 12:14] LABS: Albumin Level 4.2 g/dL (3.5-5.1); Blood Urea Nitrogen 16 mg/dL (7-17); Calcium 9.7 mg/dL (8.4-10.2); Carbon Dioxide 33 mmol/L (22-30); Chloride 101 mmol/L (98-107); Estimated Glomerular Filt Rate > 60; Glucose 99 mg/dL (65-105); Potassium 3.9 mmol/L (3.4-5.0); Sodium 140 mmol/L (137-145)
[2020-01-09 12:16] LABS: Hemoglobin A1C 5.8 % (<5.7)
[2020-01-09 12:21] LABS: Urine Cotinine NEGATIVE
== END 2020-01-09 10:03 | disposition home or self-care (01) ==
PROVIDERS: PCP Family Medicine; Visit Provider Orthopaedic Surgery
DX: M17.12 Unilateral primary osteoarthritis, left knee (principal)
CPT/HCPCS: 36415; 80048; 80307; 81003; 82040; 83036; 85610; 85730; 86850; 86900; 86901; 87081

== ENCOUNTER 2020-01-15 00:38 | Outpatient (CLI) | payer MEDICARE, OTHER, SELFPAY ==
[2020-01-15 20:03] LABS: SARS-CoV-2 RNA PCR Negative
== END 2020-01-15 00:39 | disposition home or self-care (01) ==
LOC: ANHCOVIDDT 00:39
PROVIDERS: PCP Family Medicine; Visit Provider Orthopaedic Surgery
DX: Z01.812 Encounter for preprocedural laboratory examination (principal); Z11.59 Encounter for screening for other viral diseases
CPT/HCPCS: 87635; C9803; U0003

== ENCOUNTER 2020-01-17 02:02 | Day surgery (SDC) | payer MEDICARE, OTHER, SELFPAY ==
[2020-01-09 10:39] VITALS: BP 152/76; PULSE 66; RESP 20; TEMP 36.9; O2SAT 95
[2020-01-09 11:10] VITALS: BMI 40.8
--- NOTE | 2020-01-17 07:35 | WPDHPUPDATE1 ---
History and Physical Update Update Date/Time: 01/17/20 07:35 History and Physical has been reviewed, including an updated exam of the patient. There are NO changes in the patient's condition. Risks, benefits, and alternatives have been discussed and questions answered. Patient agrees to proceed with procedure.
--- NOTE | 2020-01-17 10:27 | SUR.PREOP ---
0941 DR DORSEY INFORMED THAT PT HAS A DENTAL PROBLEM THAT SHE IS PLANNING TO TAKE CARE OF AFTER HER KNEE REPLACEMENT. STATES SHE WAS ON ANTIBIOTICS THAT FINISHED ON WEDNESDAY. 1000 DR DORSEY HERE TO SPEAK TO PT. PT SURGERY CANCELLED FOR TODAY.
== END 2020-01-17 10:15 | disposition home or self-care (01) ==
PROVIDERS: PCP Family Medicine; Visit Provider Orthopaedic Surgery
PROC: (CPT 27447; principal; 2020-01-17 10:30)
DX: M17.12 Unilateral primary osteoarthritis, left knee (principal); Z53.09 Procedure and treatment not carried out because of other contraindication
CPT/HCPCS: 99211; G0463; J0171; J2270; J2795

== ENCOUNTER 2020-03-12 12:06 | Outpatient (CLI) | payer MEDICARE, OTHER, SELFPAY ==
[2020-03-12 13:39] LABS: Basophils Absolute Auto 0.1 K/mm3 (0.0-0.1); Basophils Percent Auto 0.9 % (0.2-1.2); Eosinophils Absolute Auto 0.3 K/mm3 (0-0.3); Eosinophils Percent Auto 3.3 % (0-4.4); Hematocrit 40.1 % (37.0-47.0); Hemoglobin 13.1 g/dL (12.0-15.0); Immature Granulocyte Absolute 0.02 K/mm3 (0.00-0.031); Immature Granulocyte Percent A 0.2 % (0-0.5); Lymphocytes Absolute Auto 2.33 K/mm3 (0.9-3.2); Lymphocytes Percent Auto 28.4 % (18.3-44.2); Mean Corpuscular HGB Conc 32.7 g/dl (32-36); Mean Corpuscular Hemoglobin 29.5 pg (26-34); Mean Corpuscular Volume 90.3 fl (80-100); Mean Platelet Volume 9.6 fl (7.4-10.4); Monocytes Absolute Auto 0.6 K/mm3 (0.1-0.6); Monocytes Percent Auto 7.2 % (2.6-8.5); Neutrophils Absolute Auto 4.9 K/mm3 (1.3-6.7); Platelet Count Result 274 k/mm3 (150-375); Red Blood Count 4.44 M/mm3 (4.2-5.4); Red Cell Distribution Width 12.9 % (11.5-14.5); White Blood Count 8.2 K/mm3 (4.5-10.0)
[2020-03-12 13:46] LABS: Add Urine Microscopic? YES; Appearance Urine Clear (Clear); Bacteria Urine Trace /hpf; Bilirubin Urine Negative (Negative); Blood Urine Negative (Negative); Color Urine Straw (Yellow); Glucose Urine UA Negative (Negative); Ketones Urine Negative (Negative); Leukocyte Esterase Ur Trace LEU/UL (Negative); Mucus Urine Rare /lpf; Nitrate Urine Negative (Negative); Protein Urine Negative (Negative); Specific Grav Ur 1.009 (1.001-1.035); Squamous Epithelial Cell Urine Rare /hpf (Few); Urobilinogen Urine Negative mg/dL (<2.0)
[2020-03-12 13:51] LABS: Urine Cotinine NEGATIVE
[2020-03-12 13:51] LABS: Hemoglobin A1C 5.4 % (<5.7)
[2020-03-12 13:52] LABS: Albumin Level 4.2 g/dL (3.5-5.1); Anion Gap 9 mmol/L (8-16); Blood Urea Nitrogen 17 mg/dL (7-17); Calcium 9.9 mg/dL (8.4-10.2); Carbon Dioxide 33 mmol/L (22-30); Chloride 98 mmol/L (98-107); Estimated Glomerular Filt Rate 45; Glucose 94 mg/dL (65-105); Potassium 4.2 mmol/L (3.4-5.0); Sodium 140 mmol/L (137-145)
== END 2020-03-12 12:07 | disposition home or self-care (01) ==
PROVIDERS: PCP Family Medicine; Visit Provider Orthopaedic Surgery
DX: E11.9 Type 2 diabetes mellitus without complications (principal); M17.10 Unilateral primary osteoarthritis, unspecified knee; Z01.818 Encounter for other preprocedural examination
CPT/HCPCS: 36415; 80048; 80307; 81001; 82040; 83036; 85025; 86850; 86900; 86901; 87081

== ENCOUNTER → 2020-04-22 14:17 | Outpatient (CLI) | payer MEDICARE, OTHER, SELFPAY ==
--- NOTE | ~2020-04-22 | US_ITS ---
EXAMINATION: US renal BI DATE: 04/22/2020 14:35 INDICATION: Abnormal renal function tests. TECHNIQUE: Multiple ultrasound grayscale images of the kidneys were obtained. COMPARISON: CT abdomen and pelvis 11/02/2019 FINDINGS: The right kidney measures 8.8 x 5.4 x 5.4 cm. The left kidney measures 9.1 x 6.1 x 5.2 cm. The kidney s demonstrate normal parenchymal echogenicity. There is no hydronephrosis. The bladder is normal. IMPRESSION: 1. Mild atrophy of right kidney. No hydronephrosis. Reviewed, dictated and finalized at location A.
== END ==
PROVIDERS: PCP Family Medicine; Visit Provider Internal Medicine Nephrology
DX: R94.4 Abnormal results of kidney function studies (principal)
CPT/HCPCS: 76775

== ENCOUNTER 2020-05-10 01:40 | Emergency (ER) | payer MEDICARE, OTHER, SELFPAY ==
--- NOTE | ~2020-05-10 | CT_ITS ---
EXAMINATION: CT abdomen pelvis w con DATE: 05/10/2020 05:10 INDICATION: Epigastric abdominal pain TECHNIQUE: Computed tomography (CT) of the abdomen and pelvis was performed with 100 cc Omnipaque 350 intravenous contrast. Automated exposure control and iterative reconstruction technique were employe d. Exam dose: 1030.03 mGy-cm total exam DLP. COMPARISON: 11/02/2019 CT abdomen pelvis FINDINGS: Cardiomegaly. No pericardial or pleural effusion. The lung bases are clear. Small sliding hiatal hernia. Status post cholecystectomy, which likely accounts for mild prominence of the intrahepatic and extra hepatic bile ducts. There are multiple chronic hypoenhancing lesions of the spleen, likely secondary to hemangiomas or lymphangiomas. Splenic size is normal. No pancreatic mass lesion or calcification. No adrenal mass lesion. Approximately 7.5 x 6 x 9 mm lower pole nonobstructing right renal calculus, with attenuation of appr oximately 1560 Hounsfield units. Approximately 4 mm right renal cyst and 5 mm left renal cyst. Bilateral renal scarring, right greater than left. No ureteral calculus or hydroureteronephrosis. There is atherosclerotic calcification of the abdominal aorta, iliac and femoral arteries; no abdomin al aortic aneurysm. No intraperitoneal or retroperitoneal or pelvic mass lesion or adenopathy or asci ramila. Normal appendix. There is severe loss of height and anterior wedging of L1 due to burst fracture. Intrathecal spinal catheter in the lower thoracic spinal canal; in the subcutaneous tissues of the ri ght lateral lower abdominal wall. There is severe degenerative change of the apophyseal joints, with associated grade 1 anterolisthesis at L4-5. Bilateral hip osteoarthritis. IMPRESSION: Cardiomegaly Small sliding hiatal hernia Status post cholecystectomy Multiple splenic lesions again noted, likely secondary to hemangiomas or lymphangiomas 7.5 x 6 x 9 mm lower pole nonobstructing right renal calculus Small bilateral renal cysts Bilateral renal scarring, right greater than left Severe burst fracture deformity of L1 Reviewed, dictated and finalized at [facility]. Reviewed, dictated and finalized at [facility]. IMPRESSION: Cardiomegaly Small sliding hiatal hernia Status post cholecystectomy Multiple splenic lesions again noted, likely secondary to hemangiomas or lympha ngiomas 7.5 x 6 x 9 mm lower pole nonobstructing right renal calculus Small bilateral renal cysts Bilateral renal scarring, right greater than left Severe burst fracture deformity of L1
[2020-05-10 01:52] VITALS: BP 164/71; PULSE 50; RESP 16; TEMP 36; O2SAT 100
[2020-05-10] MEDS: ONDANSETRON INJ 4 MG/2 ML VIAL IV PUSH ×2 (02:14→05:48)
[2020-05-10] MEDS: SODIUM CHLORIDE 0.9% IV 1,000 ML 999 ML (02:17)
[2020-05-10 02:25] LABS: Basophils Absolute Auto 0.1 K/mm3 (0.0-0.1); Basophils Percent Auto 0.4 % (0.2-1.2); Eosinophils Absolute Auto 0.1 K/mm3 (0-0.3); Eosinophils Percent Auto 0.6 % (0-4.4); Hematocrit 41.7 % (37.0-47.0); Hemoglobin 14.2 g/dL (12.0-15.0); Immature Granulocyte Absolute 0.03 K/mm3 (0.00-0.031); Immature Granulocyte Percent A 0.3 % (0-0.5); Lymphocytes Absolute Auto 1.24 K/mm3 (0.9-3.2); Lymphocytes Percent Auto 10.7 % (18.3-44.2); Mean Corpuscular HGB Conc 34.1 g/dl (32-36); Mean Corpuscular Hemoglobin 29.7 pg (26-34); Mean Corpuscular Volume 87.2 fl (80-100); Mean Platelet Volume 9.8 fl (7.4-10.4); Monocytes Absolute Auto 0.3 K/mm3 (0.1-0.6); Monocytes Percent Auto 2.7 % (2.6-8.5); Neutrophils Absolute Auto 9.9 K/mm3 (1.3-6.7); Neutrophils Percent Auto 85.3 % (45.5-73.1); Platelet Count Result 317 k/mm3 (150-375); Red Blood Count 4.78 M/mm3 (4.2-5.4); Red Cell Distribution Width 13.3 % (11.5-14.5); White Blood Count 11.6 K/mm3 (4.5-10.0)
[2020-05-10 02:29] LABS: Alanine Aminotransferase 27 U/L (4-35); Albumin Level 4.2 g/dL (3.5-5.1); Alkaline Phosphatase 85 U/L (38-126); Anion Gap 10 mmol/L (8-16); Aspartate Amino Transferase 25 U/L (14-36); Bilirubin,Total 0.6 mg/dL (0.2-1.3); Blood Urea Nitrogen 17 mg/dL (7-17); Calcium 9.3 mg/dL (8.4-10.2); Carbon Dioxide 28 mmol/L (22-30); Chloride 103 mmol/L (98-107); Estimated CRCL calculation 63 ml/min; Estimated Glomerular Filt Rate > 60; Glucose 158 mg/dL (65-105); Lipase 119 U/L (23-300); Potassium 3.6 mmol/L (3.4-5.0); Sodium 141 mmol/L (137-145)
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
[2020-05-10] MEDS: MORPHINE SULFATE (*CRX) 4 MG/ML INJ IV PUSH (03:11)
[2020-05-10 03:58] VITALS: BP 140/63; PULSE 78; RESP 18; O2SAT 99
[2020-05-10 05:07] VITALS: BP 148/72; PULSE 88; RESP 18; O2SAT 99
[2020-05-10 06:26] LABS: Add Urine Microscopic? YES; Appearance Urine Clear (Clear); Bilirubin Urine Negative (Negative); Blood Urine Negative (Negative); Color Urine Yellow (Yellow); Glucose Urine UA Negative (Negative); Ketones Urine Trace mg/dL (Negative); Leukocyte Esterase Ur 1+ LEU/UL (Negative); Mucus Urine Few /lpf; Nitrate Urine Negative (Negative); Protein Urine Negative (Negative); RBC Urine 0-2 /hpf (0-2); Squamous Epithelial Cell Urine Rare /hpf (Few); Urobilinogen Urine Negative mg/dL (<2.0); WBC Urine 0-3 /hpf
[2020-05-10 06:40] LABS: Specific Grav Ur 1.042 (1.001-1.035)
== END 2020-05-10 06:22 | disposition home or self-care (01) ==
PROVIDERS: Emergency Provider Emergency Medicine; PCP Family Medicine
DX: F11.23 Opioid dependence with withdrawal (principal); R11.2 Nausea with vomiting, unspecified; G89.21 Chronic pain due to trauma; I50.32 Chronic diastolic (congestive) heart failure; I11.0 Hypertensive heart disease with heart failure; J44.9 Chronic obstructive pulmonary disease, unspecified; E11.9 Type 2 diabetes mellitus without complications; E78.5 Hyperlipidemia, unspecified; Z86.19 Personal history of other infectious and parasitic diseases; E66.9 Obesity, unspecified; Z68.38 Body mass index [BMI] 38.0-38.9, adult; G25.81 Restless legs syndrome; Z86.73 Personal history of transient ischemic attack (TIA), and cerebral infarction without residual deficits; Z86.010 Personal history of colon polyps; Z98.42 Cataract extraction status, left eye; Z98.41 Cataract extraction status, right eye; Z87.891 Personal history of nicotine dependence
CPT/HCPCS: 36415; 74177; 80053; 81001; 83690; 85025; 96361; 96374; 96375; 96376; 99284; J2270; J2405; J7030; Q9967

== ENCOUNTER 2020-05-21 16:41 | Emergency (ER) | payer MEDICARE, OTHER, SELFPAY | END 2020-05-21 17:00 | disposition left against medical advice (07) | LOC: ANHED 17:13 | PROVIDERS: PCP Family Medicine | DX: Z53.21 Procedure and treatment not carried out due to patient leaving prior to being seen by health care provider (principal) | CPT/HCPCS: 99199 ==

== ENCOUNTER 2020-10-10 07:53 | Outpatient (CLI) | payer MEDICARE, OTHER, SELFPAY ==
--- NOTE | ~2020-10-10 | DEXA_ITS ---
Bone Density Report Name: Petty Marsh Age: 65 Sex: Female Ethnicity: White Date of : 1955 Indication: postmenopausal; height loss; prior fracture; Referring Provider: MISTI ZAMORA Study: Bone densitometry was performed. Exam Date: October 10, 2020 Accession number: [id number] Bone Density: Region BMD T-score Z-score Classification AP Spine (L1, L2, L3) 1.106 0.8 2.6 Normal Femoral Neck (Left) 0.651 -1.8 -0.2 Osteopenia Total Hip (Left) 0.813 -1.1 0.2 Osteopenia Total Hip Bilateral Avg 0.833 -0.9 0.4 Normal Femoral Neck (Right) 0.604 -2.2 -0.7 Osteopenia Total Hip (Right) 0.851 -0.7 0.5 Normal World Health Organization criteria for BMD impression classify patients as: Normal (T-score at or above -1.0), Osteopenia (T-score between -1.0 and -2.5), or Osteoporosis (T-score at or below -2.5). 10-year Fracture Risk(1): Major Osteoporotic Fracture 17% Hip Fracture 2.9% Reported Risk Factors: [place] (), Neck BMD=0.604, BMI=33.2, previous fracture (1) FRAX(R) Version 3.08. Fracture probability calculated for an untreated patient. Fracture probability may be lower if the patient has received treatment. Clinical Information Provided by Patient: Has had a low trauma fracture Patient maximum height was 61.5 Menopause Age: 45 No regular weight bearing exercise Drinks caffeinated beverages Onset of menses at age 9 Number of children 2 Impression: The patient has low bone mass, based on the Right Femoral Neck T-score. The patient has an estimated ten-year risk of hip fracture of 2.9% and an estimated ten-year risk of major fracture of 17%, based on the WHO FRAX algorithm. The patient has risk factors, including: previous fracture. Discussion: BONE DENSITY IS LOW AT ONE OR MORE SKELETAL SITES. This patient's lowest T-score is low at one or more skeletal sites. It meets the World Health Organization's (WHO) criteria for ?low bone mass? (T-score between -1.0 and -2.5). The patient's 10-year risk of fracture as calculated by FRAX is less than the threshold where pharmacological therapy is recommended by the National Osteoporosis Foundation (NOF). However, all treatment decisions require clinical judgment and consideration of individual patient factors, including patient preferences, comorbidities, previous drug use, risk factors not captured in the FRAX model (e.g., frailty, falls, vitamin D deficiency, increased bone turnover, interval significant decline in bone density) and possible under or overestimation of fracture risk by FRAX. The patient should follow a healthful lifestyle (good nutrition with adequate calcium and vitamin D, and appropriate weight-bearing exercise). Follow-Up: Consider repeating this study in 2 to 3 years to reassess this patient's status, or sooner if there is some
--- NOTE | ~2020-10-10 | MM_ITS ---
EXAMINATION: MM screening yahir BI w mckenna HISTORY: Screening TECHNIQUE: Craniocaudal and mediolateral oblique 3-D tomosynthesis images were obtained and synthetic 2-D images were generated. CAD analysis was submitted and interpreted. COMPARISON: 12/17/2016 BREAST PARENCHYMAL COMPOSITION: There are scattered areas of fibroglandular density. FINDINGS: There is no evidence of suspicious mass, calcification, or architectural distortion to sugg est malignancy in either breast. There has been no suspicious interval change. IMPRESSION: 1. No mammographic evidence of malignancy. 2. Recommend routine screening mammography in one year. BI-RADS Category 1: Negative Reviewed, dictated and finalized at [facility].
== END 2020-10-10 07:54 | disposition home or self-care (01) ==
LOC: ANHIMG 07:58
PROVIDERS: PCP Family Medicine; Visit Provider Family Medicine
DX: Z12.31 Encounter for screening mammogram for malignant neoplasm of breast (principal); Z78.0 Asymptomatic menopausal state; M16.0 Bilateral primary osteoarthritis of hip
CPT/HCPCS: 77063; 77067; 77080

== ENCOUNTER 2020-10-30 07:51 | Outpatient (CLI) | payer MEDICARE, OTHER, SELFPAY ==
--- NOTE | 2020-10-30 14:00 | ECG_ITS ---
Measurements Intervals [place] Rate: 79 P: 63 MN: 159 QRS: 17 QRSD: 92 T: 39 QT: 361 QTc: 415 Interpretive Statements SINUS RHYTHM POOR R WAVE PROGRESSION, ANTERIOR LEADS BASELINE ARTIFACT- I, II, III, AVR, AVL, AVF BORDERLINE ECG Electronically Signed On 10-30-2020 14:52:57 CDT by Yvon Singleton D.O.
[2020-10-30 15:03] LABS: Add Urine Microscopic? YES; Appearance Urine Clear (Clear); Bilirubin Urine Negative (Negative); Blood Urine Negative (Negative); Color Urine Yellow (Yellow); Estimated Glomerular Filt Rate > 60; Glucose Urine UA Negative (Negative); Ketones Urine Negative (Negative); Leukocyte Esterase Ur Negative LEU/UL (Negative); Mucus Urine Rare /lpf; Nitrate Urine Negative (Negative); Protein Urine 1+ mg/dL (Negative); Urobilinogen Urine Negative mg/dL (<2.0); WBC Urine 0-3 /hpf
[2020-10-30 15:04] LABS: Prothrombin Time 13.3 Seconds (11.1-14.7)
[2020-10-30 15:05] LABS: Partial Thromboplastin Time 28.2 SECONDS (22.3-36.8)
[2020-10-30 15:06] LABS: Urine Cotinine NEGATIVE
[2020-10-30 16:02] LABS: Hemoglobin A1C 5.3 % (<5.7)
== END 2020-10-30 07:52 | disposition home or self-care (01) ==
LOC: ANHSURGERY 11-29 07:51
PROVIDERS: PCP Family Medicine; Visit Provider Orthopaedic Surgery
DX: Z01.818 Encounter for other preprocedural examination (principal); M17.10 Unilateral primary osteoarthritis, unspecified knee
CPT/HCPCS: 36415; 80307; 81001; 82565; 83036; 85610; 85730; 86850; 86900; 86901; 87081; 93005

== ENCOUNTER → 2020-11-09 01:34 | Outpatient (CLI) | payer MEDICARE, OTHER, SELFPAY ==
[2020-11-09 19:16] LABS: SARS-CoV-2 RNA PCR Negative
== END ==
PROVIDERS: PCP Family Medicine; Visit Provider Orthopaedic Surgery
DX: Z01.812 Encounter for preprocedural laboratory examination (principal); Z20.822 Contact with and (suspected) exposure to COVID-19
CPT/HCPCS: C9803; U0003; U0005

== ENCOUNTER 2020-11-13 16:19 | Observation (INO) | payer MEDICARE, OTHER, SELFPAY ==
[2020-03-12 12:13] VITALS: BP 150/71; PULSE 79; RESP 16; TEMP 36.9; O2SAT 94; BMI 38.1
[2020-10-30 13:28] VITALS: BMI 34.7
[2020-10-30 14:27] VITALS: BP 165/73; PULSE 86; RESP 16; TEMP 36.9; O2SAT 99
[2020-11-12] VITALS (12 sets, daily range): BP systolic 117–154; BP diastolic 52–75; PULSE 75–92; RESP 10–20; TEMP 36.1–36.6; O2SAT 93–100; BMI 34.4
[2020-11-12] MEDS: LACTATED RINGERS 1,000 ML 30 ML IV CONT ×2 (06:40→10:00)
[2020-11-12] MEDS: TRANEXAMIC ACID 1,000MG/ISO100 1,000 MG/100 ML BAG 200 MG IVPB (06:40)
[2020-11-12] MEDS: ACETAMINOPHEN 500 MG TABLET 1000 MG PO (06:44)
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
--- NOTE | 2020-11-12 07:25 | WPDHPUPDATE1 ---
History and Physical Update Update Date/Time: 11/12/20 07:25 History and Physical has been reviewed, including an updated exam of the patient. There are NO changes in the patient's condition. Risks, benefits, and alternatives have been discussed and questions answered. Patient agrees to proceed with procedure.
--- NOTE | 2020-11-12 07:30 | WPDANESPNB ---
Anes - Peripheral Nerve Block Date/Time: 11/12/20 07:30 I have discussed with the patient/family/POA the placement of a peripheral nerve block for post-operative pain management, including associated risks, benefits, complications, and side effects. Alternative methods of post-operative analgesia were detailed. Questions were solicited and answers provided to the satisfaction of the patient/family/POA. Time-Out: A pre-procedural Time-Out was completed immediately before starting the procedure and confirmed: Patient Identification, Site, Procedure, Patient Position and the Availability of Requisite Equipment. Clinical Indications: Acute post-operative pain management requested by the operative surgeon. Nerve Block Insertion Note Anes-nerve block: femoral left Patient position: supine Skin prep: chlorhexidine Needle: 22 gauge, stimulating, insulated echogenic needle. Needle length: 80 mm Technique: nerve stimulation lost at (mA) (0.21) Technique comment: mid2mg fent 100mcg Injectate: bupivacaine 0.25% with epi 5 mcg/ml (25ml) Observations: tolerated well Complications: none Procedure start time:: 724 Procedure end time:: 728
[2020-11-12] MEDS: ceFAZolin 2 GM/D5W 50 ML 2 GM/50 ML BAG IVPB ×2 (07:34→17:25)
[2020-11-12] MEDS: VANCOMYCIN HCL 1,000 MG VIAL 1000 MG XX (08:53)
[2020-11-12] MEDS: methylPREDNISolone ACETATE 80 MG/ML VIAL IM (09:50)
[2020-11-12] MEDS: fentaNYL CITRATE INJ (*CRX) 100 MCG/2 ML VIAL 25 MCG IV PUSH ×4 (10:14→11:01)
--- NOTE | 2020-11-12 10:14 | PM.PROC ---
Procedure Note - Detailed Date of procedure: 11/12/20 Pre-op diagnosis: left knee DJD, right knee OA Post-op diagnosis: same Procedure performed: L TKA, RIGHT KNEE INJECTION Description of procedure: THE LEFT KNEE WAS PREPPED AND DRAPED IN THE STERILE FASHION. A MIDLINE SKIN INCISION WAS MADE. A MEDIAL PARAPATELLAR ARTHROTOMY WAS MADE. THE PATELLA WAS EVERTED. THERE WAS TRICOMPARTMENT DJD. THERE WAS MINIMAL PATELLA DJD. AN INTRAMEDULLARY NISHANT WAS PLACED IN THE FEMUR. A DISTAL FEMORAL CUT WAS MADE IN 5 DEGREES OF VALGUS REMOVING APPROXIMATELY 9 MM OF BONE FROM THE DISTAL FEMUR. THE FEMUR WAS SIZED TO 60. A 60 FEMORAL CUTTING BLOCK WAS PLACED IN 3 DEGREES OF EXTERNAL ROTATION AND IN ALIGNMENT WITH YULISSA'S LINE AND THE TRANSEPICONDYLAR AXIS. ANTERIOR POSTERIOR AND CHAMFER CUTS WERE MADE. THE CUTS WERE EXCELLENT. NEXT AN INTRAMEDULLARY CUTTING GUIDE WAS PLACED IN THE TIBIA. A TRANS TIBIAL CUT WAS MADE ALONG THE LONG AXIS OF THE TIBIA. APPROXIMATELY 10 MM OF BONE WAS REMOVED FROM THE HIGH SIDE OF THE TIBIA. THE TIBIA WAS THEN PLANED TO A SMOOTH SURFACE. POSTERIOR FEMORAL OSTEOPHYTES WERE REMOVED FROM THE FEMORAL CONDYLES. A 67 TIBIAL TRIAL WAS PLACED IN ALIGNMENT WITH THE 1/3 MEDIAL ASPECT OF THE TIBIAL TUBERCLE. THEN A 60 FEMORAL TRIAL COMPONENT WAS PLACED. BOTH HAD EXCELLENT FITS. EVENTUALLY A 10 MM POLYETHYLENE TRIAL COMPONENT WAS PLACED. THE KNEE WAS TAKEN THROUGH A RANGE OF MOTION. THE KNEE CAME OUT TO FULL EXTENSION. THERE WAS NO ABNORMAL TILT TO THE PATELLA. THERE WAS GOOD A/P AND VARUS/VALGUS STABILITY. THERE WAS NO EXCESSIVE ROLL BACK WITH FLEXION. THE TRIAL COMPONENTS WERE REMOVED. THEN A 60 FEMORAL COMPONENT AND 67 TIBIAL COMPONENT WITH A 10 POLYETHYLENE COMPONENT WERE CEMENTED INTO PLACE. ONCE THE CEMENT WAS HARD THE KNEE WAS TAKEN THROUGH A ROM AGAIN AND FOUND TO BE STABLE WITH NO PATELLA TILT NO EXCESSIVE ROLL BACK WITH FLEXION AND GOOD STABILITY WITH COMPLETE AND FULL EXTENSION. THE KNEE WAS IRRIGATED WITH STERILE BETADINE AND WATER FOR ABOUT 3 MINUTES. THE BLEEDERS WERE CAUTERIZED. THE ARTHROTOMY WAS REPAIRED WITH NUMBER 1 VICRYL. THE SUB CUTANEOUS LAYER WITH 2-0 VICRYL AND THE SKIN WITH OSKAR. THE WOUND WAS WASHED AND A STERILE DRESSING WAS APPLIED. THE RIGHT KNEE WAS THEN PREPPED ANTHE THEN INJECTED WITH 1 CC DEPO MEDROL 80 MG AND 7 CC OF MARCAINE O.5 % WITHOUT EPINEPHRINE. PATIENT WAS EXTUBATED. Anesthesia: GETA Surgeon: Charles Sewell MD Estimated blood loss (mL): 100 Complications: No immediate complications Condition: stable Disposition: PACU
--- NOTE | 2020-11-12 10:45 | SUR.PHASEI ---
[id number] sbar faxed floor notified
--- NOTE | 2020-11-12 11:20 | ADMGEN ---
This patient, Petty Marsh, was admitted to Medical Room 248-. Patient/family oriented to hospital policies and general routines including ID bracelet, bed and alarms, visiting hours, pain management, procedures, bathroom and other care routines, personal items, smoking policy, room service/diet, and visiting hours. Information on how to activate the Rapid Response Team has been discussed. Patient/Family are encouraged to report perceived risks to care and to ask questions if they do not understand what they are told or what they should do.
[2020-11-12] MEDS: oxyCODONE/ACETAMINOPHEN (*CRX) 5-325 MG TABLET 1 TABLET PO ×2 (11:34→15:30)
[2020-11-12] MEDS: KCL 20 MEQ/D5/0.9% SOD CHL 1,000 ML 125 ML IV CONT (11:48)
[2020-11-12] MEDS: LOSARTAN POTASSIUM 50 MG TABLET PO (11:49)
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
--- NOTE | 2020-11-12 17:21 | PCRCNOTE ---
PT. DOES NOT WISH TO WEAR CPAP WHILE SHE IS IN THE HOSPITAL.
[2020-11-12] MEDS: rOPINIRole HCL 0.5 MG TABLET PO (17:25)
[2020-11-12] MEDS: DOCUSATE SODIUM 100 MG CAPSULE PO (17:25)
[2020-11-12] MEDS: KETOROLAC 15 MG/ML VIAL (*BKC) IV PUSH (17:33)
[2020-11-12] MEDS: MORPHINE SULFATE (*CRX) 4 MG/ML INJ 3 MG IV PUSH ×2 (18:50→21:54)
[2020-11-12] MEDS: diazePAM (*CRX) 5 MG TABLET PO (21:18)
[2020-11-12] MEDS: FAMOTIDINE 20 MG TABLET PO (21:18)
[2020-11-12] MEDS: amLODIPine BESYLATE 5 MG TABLET PO (21:18)
[2020-11-13] VITALS (10 sets, daily range): BP systolic 109–141; BP diastolic 51–61; PULSE 71–106; RESP 16–18; TEMP 36.4–38.4; O2SAT 93–100; BMI 34.4
--- NOTE | ~2020-11-13 | XR_ITS ---
EXAMINATION: XR knee LT 2V DATE: 11/12/2020 10:10 INDICATION: Postoperative evaluation following left total knee arthroplasty. TECHNIQUE: Anteroposterior and lateral views of the left knee were obtained. COMPARISON: None. FINDINGS: Left total knee arthroplasty without patellar resurfacing appears well seated and in near anatomic al ignment. No fractures identified. Skin lalitha and expected postoperative subcutaneous and intra-ar ticular gas. IMPRESSION: 1. Left total knee arthroplasty, negative for postoperative purposes. Reviewed, dictated and finalized at location A.
[2020-11-13] MEDS: KETOROLAC 15 MG/ML VIAL (*BKC) IV PUSH ×3 (00:15→19:38)
[2020-11-13] MEDS: ceFAZolin 2 GM/D5W 50 ML 2 GM/50 ML BAG IVPB ×2 (00:16→08:27)
[2020-11-13] MEDS: MORPHINE SULFATE (*CRX) 4 MG/ML INJ 3 MG IV PUSH ×5 (01:17→18:16)
[2020-11-13] MEDS: KCL 20 MEQ/D5/0.9% SOD CHL 1,000 ML 125 ML IV CONT (01:18)
[2020-11-13 05:16] LABS: Basophils Percent Auto 0.3 % (0.2-1.2); Eosinophils Percent Auto 0.3 % (0-4.4); Hemoglobin 10.1 g/dL (12.0-15.0); Immature Granulocyte Absolute 0.05 K/mm3 (0.00-0.031); Immature Granulocyte Percent A 0.4 % (0-0.5); Lymphocytes Absolute Auto 2.09 K/mm3 (0.9-3.2); Lymphocytes Percent Auto 17.8 % (18.3-44.2); Mean Corpuscular HGB Conc 33.7 g/dl (32-36); Mean Corpuscular Hemoglobin 30.1 pg (26-34); Mean Corpuscular Volume 89.3 fl (80-100); Mean Platelet Volume 9.6 fl (7.4-10.4); Monocytes Absolute Auto 1.1 K/mm3 (0.1-0.6); Monocytes Percent Auto 9.1 % (2.6-8.5); Neutrophils Absolute Auto 8.5 K/mm3 (1.3-6.7); Neutrophils Percent Auto 72.1 % (45.5-73.1); Platelet Count Result 210 k/mm3 (150-375); Red Blood Count 3.36 M/mm3 (4.2-5.4); Red Cell Distribution Width 13.5 % (11.5-14.5); White Blood Count 11.7 K/mm3 (4.5-10.0)
[2020-11-13 05:35] LABS: Anion Gap 1 mmol/L (8-16); Blood Urea Nitrogen 14 mg/dL (7-17); Calcium 8.3 mg/dL (8.4-10.2); Carbon Dioxide 30 mmol/L (22-30); Chloride 109 mmol/L (98-107); Estimated CRCL calculation 67 ml/min; Estimated Glomerular Filt Rate > 60; Glucose 118 mg/dL (65-105); Potassium 3.8 mmol/L (3.4-5.0); Sodium 140 mmol/L (137-145)
[2020-11-13] MEDS: ASPIRIN 325 MG ENTERIC TABLET 650 MG PO (08:27)
[2020-11-13] MEDS: LOSARTAN POTASSIUM 50 MG TABLET PO (08:29)
[2020-11-13] MEDS: rOPINIRole HCL 0.5 MG TABLET PO ×2 (08:29→17:23)
[2020-11-13] MEDS: FAMOTIDINE 20 MG TABLET PO (08:29)
[2020-11-13] MEDS: MULTIVITAMINS /C LUTEIN (CENTRUM SILVER) TABLET *BKC 1 TAB PO (08:29)
[2020-11-13] MEDS: HYDROcodone/acetaminophen (*CRX) 7.5-325 MG TABLET 1 TAB PO (08:29)
[2020-11-13] MEDS: DOCUSATE SODIUM 100 MG CAPSULE PO ×2 (08:29→17:23)
--- NOTE | 2020-11-13 09:30 | WPDANESPN ---
Anes - Prog Note Post-Op Date/Time: 11/13/20 09:30 Cardiovascular status: normal Respiratory status: normal Airway patency: baseline Mental status: baseline Post-Op hydration status: normal Vital Signs: Last Vital Signs Temp 36.4 C 11/13/20 04:55 Pulse 71 11/13/20 04:55 Resp 18 11/13/20 04:55 BP 114/51 L 11/13/20 04:55 Pulse Ox 93 11/13/20 08:59 Pain Score (VAS): 08/21 I/O: Intake & Output 11/12/20 11/13/20 11/13/20 23:59 07:59 15:59 Intake Total 590 1100 Output Total 850 Balance -260 1100 Laboratory Tests 11/13/20 05:01 11/13/20 05:01 11/13/20 11/13/20 05:01 05:01 WBC 11.7 H RBC 3.36 L Hgb 10.1 L D Hct 30.0 L MCV 89.3 MCH 30.1 MCHC 33.7 RDW 13.5 Plt Count 210 MPV 9.6 Immature Gran % (Auto) 0.4 Neut % (Auto) 72.1 Lymph % (Auto) 17.8 L [place] % (Auto) 9.1 H Eos % (Auto) 0.3 Baso % (Auto) 0.3 Lymph # (Auto) 2.09 [place] # (Auto) 1.1 H Eos # (Auto) 0.0 Baso # (Auto) 0.0 Abs Immat Gran (auto) 0.05 H Absolute Neuts (auto) 8.5 H Absolute Nucleated RBC 0.0 Nucleated RBC % 0.0 Sodium 140 Potassium 3.8 Chloride 109 H Carbon Dioxide 30 Anion Gap 1 L BUN 14 Creatinine 0.70 Estim Creat Clear Calc 67 Estimated GFR > 60 Glucose 118 H Calcium 8.3 L Post-procedural complaints: none Patient Feedback: Patient satisfied with anesthetic care.
--- NOTE | 2020-11-13 13:21 | PCNSR ---
On 11/13/20, the student,Doretha Earl, provided care and completed [facility] documentation on this patient. I have reviewed the student's documentation and agree with the findings.
[2020-11-13] MEDS: diazePAM (*CRX) 5 MG TABLET PO (13:30)
--- NOTE | 2020-11-13 15:01 | PM.PNORT ---
Progress Note: A&P Additional Plan POD 1 WITH SLOW START IN PAIN CONTROL AND PT. WE WILL CONTINUE PT AND REASSESS IN THE AM Subjective Subjective Date/Time Seen: 11/13/20 15:01 POD 1 NAD HAVING SLOW PROGRESS WITH PAIN CONTROL. SHE HAS SOB OR CP, NO LEG PAIN Exam Extrem: Other: VSS AFEBRILE DRESSING DRY NV INTACT NEG HOMANS SIGN. Objective Data Vital Signs Vital Signs: Vital Signs - 24 hr 11/12/20 18:00 11/12/20 20:55 11/13/20 00:55 Temperature 36.6 C 36.2 C L 36.6 C Pulse Rate 88 89 76 Respiratory Rate 18 16 16 Blood Pressure 140/52 L 131/67 109/51 L Pulse Oximetry 93 95 99 11/13/20 04:55 11/13/20 08:59 11/13/20 10:00 Temperature 36.4 C 36.7 C Pulse Rate 71 74 Respiratory Rate 18 18 Blood Pressure 114/51 L 133/55 L Pulse Oximetry 99 93 97 11/13/20 14:00 Temperature 36.7 C Pulse Rate 95 Respiratory Rate 16 Blood Pressure 134/52 L Pulse Oximetry 99 Intake/Output Intake/Output: Intake & Output 11/10/20 11/11/20 11/12/20 11/13/20 23:59 23:59 23:59 23:59 Intake Total 740 1600 Output Total 850 Balance -110 1600 Meds/Results Medications: Active Medications Generic Name Dose Route Start Last Admin Trade Name Freq PRN Reason Stop Dose Admin Acetaminophen 1,300 mg 11/12/20 11:10 Acetaminophen 325 Mg Tablet PO Q8H PRN Pain 1-3 Hydrocodone Bitart/Acetaminophen 1 tab 11/12/20 14:30 11/13/20 08:29 Hydrocodone/Acetaminophen (*Crx) 7.5-325 Mg Tablet PO 1 tab Q6H PRN Administration Pain Rated 4-6 Albuterol 1 puff 11/12/20 11:10 Albuterol Sulfate (*Sp) Aerosol 1 Puff INHALATION QIDRT PRN Dyspnea Amlodipine Besylate 5 mg 11/12/20 21:00 11/12/20 21:18 Amlodipine Besylate 5 Mg Tablet PO 5 mg HS TRACEY Administration Aspirin 650 mg 11/13/20 09:00 11/13/20 08:27 Aspirin 325 Mg Enteric Tablet PO 650 mg DAILY TRACEY Administration Diazepam 5 mg 11/12/20 11:10 11/13/20 13:30 Diazepam (*Crx) 5 Mg Tablet PO 5 mg Q8H PRN Administration Spasms Diphenhydramine HCl 25 mg 11/12/20 11:10 Diphenhydramine Hcl Inj 50 Mg/Ml Vial IV PUSH Q6H PRN Itching Docusate Sodium 100 mg 11/12/20 17:00 11/13/20 08:29 Docusate Sodium 100 Mg Capsule PO 100 mg BID TRACEY Administration Famotidine 20 mg 11/12/20 21:00 11/13/20 08:29 Famotidine 20 Mg Tablet PO 20 mg Q12HR TRACEY Administration Ketorolac Tromethamine 15 mg 11/12/20 16:26 11/13/20 13:30 Ketorolac 15 Mg/Ml Vial (*Bkc) IV PUSH 15 mg Q6H PRN Administration Breakthrough Pain Losartan Potassium 50 mg 11/12/20 12:00 11/13/20 08:29 Losartan Potassium 50 Mg Tablet PO 50 mg QAM TRACEY Administration Morphine Sulfate 3 mg 11/12/20 16:24 11/13/20 11:16 Morphine Sulfate (*Crx) 4 Mg/Ml Inj IV PUSH 3 mg Q3H PRN Administration Pain Rated 7-10 Multivitamins/Minerals 1 tab 11/13/20 09:00 11/13/20 08:29 Multivitamins /C Lutein (Centrum Silver) Tablet *Bkc PO 1 tab DAILY TRACEY Administration Naloxone HCl 0.1 mg 11/12/20 11:10 Naloxone Hcl 0.4 Mg/Ml Vial IV PUSH Q2M PRN Opiate Reversal Ondansetron HCl 4 mg 11/12/20 11:10 Ondansetron Inj 4 Mg/2 Ml Vial IV PUSH Q4H PRN Nausea And Vomiting Ropinirole HCl 0.5 mg 11/12/20 17:00 11/13/20 08:29 Ropinirole Hcl 0.5 Mg Tablet PO 0.5 mg BID TRACEY Administration Umeclidinium/Vilanterol 1 puff 11/12/20 11:10 Umeclidinium/Vilanterol 62.5-25 Mcg Ellipta INHALATION PRN PRN Shortness Of Breath Radiology Results: ITS Impressions Knee X-Ray 11/12/20 10:16 IMPRESSION: 1. Left total knee arthroplasty, negative for postoperative purposes. Labs Labs: Laboratory Results - last 24 hr 11/13/20 11/13/20 05:01 05:01 WBC 11.7 H RBC 3.36 L Hgb 10.1 L D Hct 30.0 L MCV 89.3 MCH 30.1 MCHC 33.7 RDW 13.5 Plt Count 210 MPV 9.6 Immature Gran % (Auto) 0.4 Neut % (Auto) 72.1 Lym
[2020-11-13] MEDS: oxyCODONE/ACETAMINOPHEN (*CRX) 5-325 MG TABLET 1 TABLET PO ×2 (15:40→22:13)
--- NOTE | 2020-11-13 17:16 | PM.IMPN ---
Progress Note: A&P Assessment and Plan (1) DJD (degenerative joint disease) of knee: Code(s): M17.10 - Unilateral primary osteoarthritis, unspecified knee Status: Acute (2) Chronic hypoxemic respiratory failure: Code(s): J96.11 - Chronic respiratory failure with hypoxia Status: Acute (3) Chronic obstructive pulmonary disease, unspecified: Onset Date: Unknown Qualifiers: COPD type: unspecified COPD Qualified Code(s): J44.9 - Chronic obstructive pulmonary disease, unspecified Code(s): J44.9 - Chronic obstructive pulmonary disease, unspecified Status: Chronic (4) Chronic diastolic (congestive) heart failure: Onset Date: Unknown Code(s): I50.32 - Chronic diastolic (congestive) heart failure Status: Chronic (5) GINA on CPAP: Code(s): G47.33 - Obstructive sleep apnea (adult) (pediatric); Z99.89 - Dependence on other enabling machines and devices Status: Chronic (6) Benign essential HTN: Code(s): I10 - Essential (primary) hypertension Status: Acute (7) Restless legs syndrome: Code(s): G25.81 - Restless legs syndrome Status: Acute (8) Chronic pain due to injury: Code(s): G89.21 - Chronic pain due to trauma Status: Acute (9) Obesity (BMI 35.0-39.9 without comorbidity): Onset Date: Unknown Code(s): E66.9 - Obesity, unspecified Status: Acute (10) Constipation: Code(s): K59.00 - Constipation, unspecified Status: Acute Additional Plan 11/12/2020 Petty Marsh is a 65 year old female moderately obese with history hypertension, cardiomegaly, sleep apnea and history of severe osteoarthritis of the left knee status post total knee arthroplasty today, consulted to manage patient hypertension and sleep apnea, patient with history of chronic pain was on pain pump and was removed in 2019, currently patient complains of pain and current regimen is not helping, will contacting patient's surgeon further recommendation, patient denies any complaint of chest pain shortness of breath palpitation fever or chills. 11/13/2020 L TKA POD 1 doing very well continue current medical therapy for her chronic diseases noted above including supplemental oxygen, DuoNebs, maintaining euvolemic status, CPAP at night, pain regimen, laxative Time Spent With Patient Time with patient: 15 - 25 minutes Subjective Date/time seen: 11/13/20 17:16 Patient doing okay reports that she is unable tolerate ice pack on her left knee. Patient is encouraged to continue to use this as it will reduce swelling and inflammation. We discussed pain medication regimen. She is using morphine I advised her to use the oral Percocet preferentially and morphine only for breakthrough as it does not last very long period. Otherwise doing okay except for constipation Exam Narrative: Exam Narrative: GEN: comfortable, NAD, obese with BMI of 34.4 HEENT: eyes are clear and none icteric LUNGS: symmetric chest rise, no use of accessory muscles2 ABD: BS+, Soft and nontender Lower extremities: Left knee surgical site without concerning signs, edematous SKIN: nonjaundiced Neuro: grossly intact. Objective Data Vital Signs Vital Signs: Vital Signs - 24 hr 11/12/20 18:00 11/12/20 20:55 11/13/20 00:55 Temperature 97.9 F 97.2 F L 97.9 F Pulse Rate 88 89 76 Respiratory Rate 18 16 16 Blood Pressure 140/52 L 131/67 109/51 L Pulse Oximetry 93 95 99 11/13/20 04:55 11/13/20 08:59 11/13/20 10:00 Temperature 97.6 F 98.1 F Pulse Rate 71 74 Respiratory Rate 18 18 Blood Pressure 114/51 L 133/55 L Pulse Oximetry 99 93 97 11/13/20 14:00 Temperature 98.1 F Pulse Rate 95 Respiratory Rate 16 Blood Pressure 134/52 L Pulse Oximetry 99 Intake/Output Intake/Output: Intake & Output 11/10/20 11/11/20 11/12/20 11/13/20 23:59 23:59 23:59 23:59 Intake Total 740 1600 Output Total 850 Balance -110 1600 Meds/
[2020-11-13] MEDS: ACETAMINOPHEN 500 MG TABLET 1000 MG PO (18:49)
[2020-11-13] MEDS: amLODIPine BESYLATE 5 MG TABLET PO (22:13)
[2020-11-14] VITALS (7 sets, daily range): BP systolic 117–144; BP diastolic 53–63; PULSE 77–101; RESP 14–20; TEMP 36.4–37.2; O2SAT 95–100
[2020-11-14] MEDS: WATER FOR IRRIGATION, STERILE 1,000 ML BOTTLE 1000 ML (01:30)
[2020-11-14] MEDS: oxyCODONE/ACETAMINOPHEN (*CRX) 5-325 MG TABLET 1 TABLET PO ×5 (03:49→21:46)
[2020-11-14] MEDS: DOCUSATE SODIUM 100 MG CAPSULE PO ×2 (05:54→17:12)
[2020-11-14] MEDS: MORPHINE SULFATE (*CRX) 4 MG/ML INJ 3 MG IV PUSH (06:58)
[2020-11-14] MEDS: MULTIVITAMINS /C LUTEIN (CENTRUM SILVER) TABLET *BKC 1 TAB PO (08:45)
[2020-11-14] MEDS: polyethylene glycoL 3350 17 GM POWD.PACK PO (08:45)
[2020-11-14] MEDS: ASPIRIN 325 MG ENTERIC TABLET 650 MG PO (08:45)
[2020-11-14] MEDS: LOSARTAN POTASSIUM 50 MG TABLET PO (08:45)
[2020-11-14] MEDS: rOPINIRole HCL 0.5 MG TABLET PO ×2 (08:45→17:12)
--- NOTE | 2020-11-14 09:19 | PM.PNORT ---
Progress Note: A&P Assessment and Plan (1) S/P total knee arthroplasty: Qualifiers: Laterality: left Qualified Code(s): Z96.652 - Presence of left artificial knee joint Code(s): Z96.659 - Presence of unspecified artificial knee joint Status: Acute Assessment and Plan: POD #1: Left TKA Continue PT/OT. WBAT. Walker. HIGH FALL RISK. Continue pain control. Ice. No pillow under knee. Bowel Regimen Continue DVT prophylaxis. SCDs. Incentive Spirometry. Monitor Dressing. Change prior to discharge. Dispo: Home with Home Health pending progress with PT/OT. Subjective Subjective Date/Time Seen: 11/14/ 09:19 POD #2: Left TKA Continued complaints of pain. Mild improvement from yesterday. No c/o SOB or CP. Afebrile. Hopeful for discharge home today. Review of Systems Review of Systems: All systems reviewed & are unremarkable except as noted in HPI and below Constitutional: Constitutional: Denies fever(s) and Denies headache(s) ENT: Denies headache(s) Cardiovascular: Cardiovascular: Denies chest pain, Denies diaphoresis, Denies palpitations and Denies dyspnea Respiratory: Respiratory: Denies dyspnea Gastrointestinal: Gastrointestinal: Denies abdominal pain, Denies constipation, Denies nausea and Denies vomiting Genitourinary: Genitourinary: Reports nocturia and Denies dysuria Musculoskeletal: Musculoskeletal: Reports arthralgias (Left Knee ), Reports joint swelling (Left Knee ) and Reports limited range of motion (ROM limited due to recent surgical intervention LEFT Knee ) Neurologic: Denies headache(s) Endocrine: Endocrine: Denies palpitations Exam Const: General: comfortable and no acute distress Resp: Effort & Inspection: normal respiratory effort Cardio: Rate: regular rate Rhythm: regular rhythm GI: GI Palp: Yes Soft to palpation, No Tenderness to palpation present (GI) and No Guarding due to palpation present (GI) Skin: Wounds: wounds noted Other: Incision c/d/i. No surrounding redness/warmth. No hematoma. Mild ecchymosis. No wound dehiscence Neuro: Cognition (Neuro): normal cognition Other: NV intact aside from block. Moves toes. Sensation intact to light touch. +ankle dorsiflexion/plantarflexion. Extrem: Right lower extremity: normal to inspection Left lower extremity: normal to inspection, normal capillary refill, knee Details: tenderness (diffuse ), swelling (moderate consistent to recent surgery ), abnormal ROM (limited due to recent surgery ) and ecchymosis (as expected with recent surgery. NO hematoma. ), lower leg (Negative Peyman's Sign ), ankle (+ankle dorsiflexion/plantarflexion ) and foot (2+ pedal pulses. ) Other: Incision left TKA dressing c/d/i. No hematoma. No signs of infection. No wound dehiscence. Psych: Mental Status: mental status grossly normal Objective Data Vital Signs Vital Signs: Vital Signs - 24 hr 11/13/20 10:00 11/13/20 14:00 11/13/20 18:00 Temperature 36.7 C 36.7 C Pulse Rate 74 95 106 H Respiratory Rate 18 16 18 Blood Pressure 133/55 L 134/52 L 141/61 H Pulse Oximetry 97 99 94 11/13/20 18:28 11/13/20 18:49 11/13/20 20:49 Temperature 38.4 C H 38.4 C H 37.0 C Pulse Rate Respiratory Rate Blood Pressure Pulse Oximetry 11/13/20 22:25 11/14/20 01:05 11/14/20 02:00 Temperature 37.3 C 36.8 C Pulse Rate 104 H 78 87 Respiratory Rate 16 18 20 Blood Pressure 121/52 L 133/53 L Pulse Oximetry 100 95 98 11/14/20 06:00 Temperature 36.4 C Pulse Rate 80 Respiratory Rate 20 Blood Pressure 120/59 L Pulse Oximetry 98 Intake/Output Intake/Output: Intake & Output 11/11/20 11/12/20 11/13/20 11/14/20 23:59 23:59 23:59 23:59 Intake Total 740 2100 500 Output Total 850 800 Balance -110 2100 -300 Meds/Results Medications: Active Medications Generic Name Dose Route Start Last Admin Trade Name Freq PRN Reason Stop Dose Admin Acetaminophen 1,000 mg 11/13/20 18:32 11/13/20 18:49 Acet
[2020-11-14] MEDS: ACETAMINOPHEN 500 MG TABLET 1000 MG PO (10:55)
--- NOTE | 2020-11-14 11:09 | PCPTNOTE ---
Patient refused treatment this session due to pain. PT was attempted 2 times prior to this attempt and patient was unavailable. First attempt patient was eating breakfast and then with OT on second attempt. PT will attempt again this afternoon.
--- NOTE | 2020-11-14 13:52 | PM.IMPN ---
Progress Note: A&P Assessment and Plan (1) DJD (degenerative joint disease) of knee: Code(s): M17.10 - Unilateral primary osteoarthritis, unspecified knee Status: Acute (2) Chronic hypoxemic respiratory failure: Code(s): J96.11 - Chronic respiratory failure with hypoxia Status: Acute (3) Chronic obstructive pulmonary disease, unspecified: Onset Date: Unknown Qualifiers: COPD type: unspecified COPD Qualified Code(s): J44.9 - Chronic obstructive pulmonary disease, unspecified Code(s): J44.9 - Chronic obstructive pulmonary disease, unspecified Status: Chronic (4) Chronic diastolic (congestive) heart failure: Onset Date: Unknown Code(s): I50.32 - Chronic diastolic (congestive) heart failure Status: Chronic (5) GINA on CPAP: Code(s): G47.33 - Obstructive sleep apnea (adult) (pediatric); Z99.89 - Dependence on other enabling machines and devices Status: Chronic (6) Benign essential HTN: Code(s): I10 - Essential (primary) hypertension Status: Acute (7) Restless legs syndrome: Code(s): G25.81 - Restless legs syndrome Status: Acute (8) Chronic pain due to injury: Code(s): G89.21 - Chronic pain due to trauma Status: Acute (9) Obesity (BMI 35.0-39.9 without comorbidity): Onset Date: Unknown Code(s): E66.9 - Obesity, unspecified Status: Acute (10) Constipation: Code(s): K59.00 - Constipation, unspecified Status: Acute Additional Plan 11/12/2020 Petty Marsh is a 65 year old female moderately obese with history hypertension, cardiomegaly, sleep apnea and history of severe osteoarthritis of the left knee status post total knee arthroplasty today, consulted to manage patient hypertension and sleep apnea, patient with history of chronic pain was on pain pump and was removed in 2019, currently patient complains of pain and current regimen is not helping, will contacting patient's surgeon further recommendation, patient denies any complaint of chest pain shortness of breath palpitation fever or chills. 11/13/2020 L TKA POD 1 doing very well continue current medical therapy for her chronic diseases noted above including supplemental oxygen, DuoNebs, maintaining euvolemic status, CPAP at night, pain regimen, laxative 11/14/2020 left TKA pod 2 patient continues to complain of pain. Orthopedist will come by to review joint to ensure no concerning findings present. Pain management will be adjusted to 5/325 for pain 4-6 q.4 hours and Percocet 10/325 for pain 7-10 q.4 hours and morphine 2 mg IV Q 3 hours for breakthrough pain. Patient encouraged to work with PT. Continue current care. DC planning Subjective Date/time seen: 11/14/20 13:52 Patient complaining of severe pain unable to tolerate physical therapy notably distressed during my examination today. Exam Narrative: Exam Narrative: GEN: comfortable, NAD, obese with BMI of 34.4 HEENT: eyes are clear and none icteric LUNGS: symmetric chest rise, no use of accessory muscles clear to auscultation bilaterally ABD: BS+, Soft and nontender Lower extremities: Left knee edematous reduced range of motion tender to palpation SKIN: nonjaundiced Neuro: grossly intact. Objective Data Vital Signs Vital Signs: Vital Signs - 24 hr 11/13/20 14:00 11/13/20 18:00 11/13/20 18:28 Temperature 98.1 F 101.1 F H Pulse Rate 95 106 H Respiratory Rate 16 18 Blood Pressure 134/52 L 141/61 H Pulse Oximetry 99 94 11/13/20 18:49 11/13/20 20:49 11/13/20 22:25 Temperature 101.1 F H 98.6 F 99.2 F Pulse Rate 104 H Respiratory Rate 16 Blood Pressure 121/52 L Pulse Oximetry 100 11/14/20 01:05 11/14/20 02:00 11/14/20 06:00 Temperature 98.3 F 97.6 F Pulse Rate 78 87 80 Respiratory Rate 18 20 20 Blood Pressure 133/53 L 120/59 L Pulse Oximetry 95 98 98 11/14/20 10:00 11/14/20 12:00 Temperature 97.7 F 99.0 F Pu
[2020-11-14] MEDS: oxyCODONE HCL (*CRX) 5 MG TAB IR PO ×2 (14:55→18:48)
[2020-11-14] MEDS: KETOROLAC 15 MG/ML VIAL (*BKC) IV PUSH ×2 (16:17→23:45)
[2020-11-14] MEDS: amLODIPine BESYLATE 5 MG TABLET PO (21:43)
[2020-11-14] MEDS: diazePAM (*CRX) 5 MG TABLET PO (23:45)
[2020-11-15] MEDS: oxyCODONE/ACETAMINOPHEN (*CRX) 5-325 MG TABLET 1 TABLET PO ×3 (03:20→07:22)
[2020-11-15 03:22] VITALS: RESP 16
[2020-11-15] MEDS: oxyCODONE HCL (*CRX) 5 MG TAB IR PO ×2 (03:22→07:22)
[2020-11-15 05:56] LABS: Anion Gap 5 mmol/L (8-16); Blood Urea Nitrogen 15 mg/dL (7-17); Calcium 9.4 mg/dL (8.4-10.2); Carbon Dioxide 29 mmol/L (22-30); Chloride 103 mmol/L (98-107); Estimated CRCL calculation 67 ml/min; Estimated Glomerular Filt Rate > 60; Glucose 108 mg/dL (65-105); Magnesium 1.7 mg/dL (1.6-2.3); Potassium 3.6 mmol/L (3.4-5.0); Sodium 137 mmol/L (137-145)
[2020-11-15] MEDS: DOCUSATE SODIUM 100 MG CAPSULE PO (05:56)
[2020-11-15 06:00] VITALS: BP 124/59; PULSE 92; RESP 16; TEMP 36.7; O2SAT 94
[2020-11-15] MEDS: KETOROLAC 15 MG/ML VIAL (*BKC) IV PUSH (07:14)
--- NOTE | 2020-11-15 07:54 | PM.IMPN ---
Progress Note: A&P Additional Plan 11/12/2020 Petty Marsh is a 65 year old female moderately obese with history hypertension, cardiomegaly, sleep apnea and history of severe osteoarthritis of the left knee status post total knee arthroplasty today, consulted to manage patient hypertension and sleep apnea, patient with history of chronic pain was on pain pump and was removed in 2019, currently patient complains of pain and current regimen is not helping, will contacting patient's surgeon further recommendation, patient denies any complaint of chest pain shortness of breath palpitation fever or chills. 11/13/2020 L TKA POD 1 doing very well continue current medical therapy for her chronic diseases noted above including supplemental oxygen, DuoNebs, maintaining euvolemic status, CPAP at night, pain regimen, laxative 11/14/2020 left TKA pod 2 patient continues to complain of pain. Orthopedist will come by to review joint to ensure no concerning findings present. Pain management will be adjusted to 5/325 for pain 4-6 q.4 hours and Percocet 10/325 for pain 7-10 q.4 hours and morphine 2 mg IV Q 3 hours for breakthrough pain. Patient encouraged to work with PT. Continue current care. DC planning 11/15/2020 L TKA POD 3 labs and VS w/in range, doing much better w pain control, ready to go home. defer to ortho Subjective Date/time seen: 11/15/20 07:54 pt sitting up in chair reports pain improved, tearful that her dog is ill and she wants to go home. PT requested to work w PT to ensure she is safe before dc. Medication administration reviewed w RN 3 doses of Toradol, 2 doses of 10/325, and 2 doses of 5/325 percocet received. no morphine. appears to be well controlled on PO pain meds Exam Narrative: Exam Narrative: GEN: comfortable, NAD, obese with BMI of 34.4, sitting up in chair by bedside HEENT: eyes are clear and none icteric LUNGS: symmetric chest rise, no use of accessory muscles clear to auscultation bilaterally ABD: BS+, Soft and nontender Lower extremities: Left knee in extension w ice pack SKIN: nonjaundiced Neuro: grossly intact. Objective Data Vital Signs Vital Signs: Vital Signs - 24 hr 11/14/20 10:00 11/14/20 12:00 11/14/20 22:20 Temperature 97.7 F 99.0 F 97.6 F Pulse Rate 87 101 H 89 Respiratory Rate 20 20 16 Blood Pressure 136/63 144/63 H 117/56 L Pulse Oximetry 99 100 98 11/14/20 23:33 11/15/20 03:22 11/15/20 06:00 Temperature 98.0 F Pulse Rate 77 92 Respiratory Rate 14 16 16 Blood Pressure 124/59 L Pulse Oximetry 96 94 Intake/Output Intake/Output: Intake & Output 11/12/20 11/13/20 11/14/20 11/15/20 23:59 23:59 23:59 23:59 Intake Total 740 2100 1200 500 Output Total 850 1600 300 Balance -110 2100 -400 200 Meds/Results Medications: Active Medications Generic Name Dose Route Start Last Admin Trade Name Freq PRN Reason Stop Dose Admin Acetaminophen 1,000 mg 11/13/20 18:32 11/14/20 10:55 Acetaminophen 500 Mg Tablet PO 1,000 mg Q6H PRN Administration Pain or Fever Albuterol 1 puff 11/12/20 11:10 Albuterol Sulfate (*Sp) Aerosol 1 Puff INHALATION QIDRT PRN Dyspnea Amlodipine Besylate 5 mg 11/12/20 21:00 11/14/20 21:43 Amlodipine Besylate 5 Mg Tablet PO 5 mg HS TRACEY Administration Aspirin 650 mg 11/13/20 09:00 11/14/20 08:45 Aspirin 325 Mg Enteric Tablet PO 650 mg DAILY TRACEY Administration Diazepam 5 mg 11/12/20 11:10 11/14/20 23:45 Diazepam (*Crx) 5 Mg Tablet PO 5 mg Q8H PRN Administration Spasms Diphenhydramine HCl 25 mg 11/12/20 11:10 Diphenhydramine Hcl Inj 50 Mg/Ml Vial IV PUSH Q6H PRN Itching Docusate Sodium 100 mg 11/13/20 18:30 11/15/20 05:56 Docusate Sodium 100 Mg Capsule PO 100 mg Q12H TRACEY Administration Ketorolac Tromethamine 15 mg 11/14/20 16:00 11/15/20 07:14 Ketorolac 15 Mg/Ml Vial (*Bkc) IV PUSH 11/16/20 00:01 15 mg Q8H TRACEY Administration Leona
--- NOTE | 2020-11-15 09:11 | PM.PNORT ---
Progress Note: A&P Assessment and Plan (1) S/P total knee arthroplasty: Qualifiers: Laterality: left Qualified Code(s): Z96.652 - Presence of left artificial knee joint Code(s): Z96.659 - Presence of unspecified artificial knee joint Status: Acute Assessment and Plan: POD #3: Left TKA Continue PT/OT. WBAT. Walker. HIGH FALL RISK. Continue pain control. Ice. No pillow under knee. Bowel Regimen Continue DVT prophylaxis. SCDs. Incentive Spirometry. Monitor Dressing. Change prior to discharge. Dispo: Home with Home Health likely today pending progress with PT/OT. Subjective Subjective Date/Time Seen: 11/15/ 09:00 POD #3: LEFT TKA Pain control improved today. Working well with PT/OT. Hopeful for discharge home with home health today. No new concerns. Review of Systems Review of Systems: All systems reviewed & are unremarkable except as noted in HPI and below Constitutional: Constitutional: Denies fever(s) and Denies headache(s) ENT: Denies headache(s) Cardiovascular: Cardiovascular: Denies chest pain, Denies diaphoresis, Denies palpitations and Denies dyspnea Respiratory: Respiratory: Denies dyspnea Gastrointestinal: Gastrointestinal: Denies abdominal pain, Denies constipation, Denies nausea and Denies vomiting Genitourinary: Genitourinary: Reports nocturia and Denies dysuria Musculoskeletal: Musculoskeletal: Reports arthralgias (Left Knee ), Reports joint swelling (Left Knee ) and Reports limited range of motion (ROM limited due to recent surgical intervention LEFT Knee ) Neurologic: Denies headache(s) Endocrine: Endocrine: Denies palpitations Exam Const: General: comfortable and no acute distress Resp: Effort & Inspection: normal respiratory effort Cardio: Rate: regular rate Rhythm: regular rhythm GI: GI Palp: Yes Soft to palpation, No Tenderness to palpation present (GI) and No Guarding due to palpation present (GI) Skin: Wounds: wounds noted Other: Incision c/d/i. No surrounding redness/warmth. No hematoma. Mild ecchymosis. No wound dehiscence Neuro: Cognition (Neuro): normal cognition Other: NV intact. Moves toes. Sensation intact to light touch. +ankle dorsiflexion/plantarflexion. Extrem: Right lower extremity: normal to inspection Left lower extremity: normal to inspection, normal capillary refill, knee, lower leg (Negative Peyman's Sign ), ankle (+ankle dorsiflexion/plantarflexion ) and foot (2+ pedal pulses. ) Other: Incision left TKA dressing c/d/i. No hematoma. No signs of infection. No wound dehiscence. Psych: Mental Status: mental status grossly normal Objective Data Vital Signs Vital Signs: Vital Signs - 24 hr 11/14/20 10:00 11/14/20 12:00 11/14/20 22:20 Temperature 36.5 C 37.2 C 36.4 C Pulse Rate 87 101 H 89 Respiratory Rate 20 20 16 Blood Pressure 136/63 144/63 H 117/56 L Pulse Oximetry 99 100 98 11/14/20 23:33 11/15/20 03:22 11/15/20 06:00 Temperature 36.7 C Pulse Rate 77 92 Respiratory Rate 14 16 16 Blood Pressure 124/59 L Pulse Oximetry 96 94 Intake/Output Intake/Output: Intake & Output 11/12/20 11/13/20 11/14/20 11/15/20 23:59 23:59 23:59 23:59 Intake Total 740 2100 1200 500 Output Total 850 1600 300 Balance -110 2100 -400 200 Meds/Results Medications: Active Medications Generic Name Dose Route Start Last Admin Trade Name Freq PRN Reason Stop Dose Admin Acetaminophen 1,000 mg 11/13/20 18:32 11/14/20 10:55 Acetaminophen 500 Mg Tablet PO 1,000 mg Q6H PRN Administration Pain or Fever Albuterol 1 puff 11/12/20 11:10 Albuterol Sulfate (*Sp) Aerosol 1 Puff INHALATION QIDRT PRN Dyspnea Amlodipine Besylate 5 mg 11/12/20 21:00 11/14/20 21:43 Amlodipine Besylate 5 Mg Tablet PO 5 mg HS TRACEY Administration Aspirin 650 mg 11/13/20 09:00 11/14/20 08:45 Aspirin 325 Mg Enteric Tablet PO 650 mg DAILY TRACEY Administration Diazepam 5 mg 11/12/20 11
[2020-11-15] MEDS: LOSARTAN POTASSIUM 50 MG TABLET PO (09:35)
[2020-11-15] MEDS: MULTIVITAMINS /C LUTEIN (CENTRUM SILVER) TABLET *BKC 1 TAB PO (09:35)
[2020-11-15] MEDS: ASPIRIN 325 MG ENTERIC TABLET 650 MG PO (09:36)
[2020-11-15] MEDS: rOPINIRole HCL 0.5 MG TABLET PO (09:36)
[2020-11-15] MEDS: UMECLIDINIUM/VILANTEROL 62.5-25 MCG ELLIPTA 1 PUFF INHALATION (09:36)
--- NOTE | 2020-11-15 12:20 | PM.DS ---
DS: Admitting Diagnosis Admitting Diagnosis Admitting Diagnosis: Left knee DJD DS: Discharge Diagnosis Discharge Diagnosis (1) S/P total knee arthroplasty: Qualifiers: Laterality: left Qualified Code(s): Z96.652 - Presence of left artificial knee joint Code(s): Z96.659 - Presence of unspecified artificial knee joint Status: Acute Assessment and Plan: POD #3: Left TKA Continue PT/OT. WBAT. Walker. HIGH FALL RISK. Continue pain control. Ice. No pillow under knee. Bowel Regimen Continue DVT prophylaxis. SCDs. Incentive Spirometry. Monitor Dressing. Change prior to discharge. Dispo: Home with Home Health likely today pending progress with PT/OT. DS: Summary Hospital Course Reason for hospitalization: left total knee arthroplasty Hospital Course: 55-year-old female admitted status post left total knee arthroplasty for postoperative pain control, medical management and mobilization with physical and occupational therapy. Patient had difficulty with pain control on postop day 1 and 2. Patient progressed well in regards to pain on postop day 3. She worked well with PT and OT and was prepared for discharge home. She will be discharged home today with home health. She will follow up in 3 weeks for re-evaluation. Her dressing is changed prior to discharge and she is sent with 1 additional dressing to be changed in 5 days with home health nurse. All questions are answered. Medications were called to the pharmacy. Patient is comfortable with her pain control plan at this time. She will contact our office if any uncontrolled pain. Status at Discharge Functional status at discharge: uses cane/walker Overall status at discharge: patient is progressing back to baseline Time Spent with Patient Time attestation: Total time spent providing and/or coordinating discharge services: Exam Const: General: comfortable and no acute distress Resp: Effort & Inspection: normal respiratory effort Cardio: Rate: regular rate Rhythm: regular rhythm GI: GI Palp: Yes Soft to palpation, No Tenderness to palpation present (GI) and No Guarding due to palpation present (GI) Skin: Wounds: wounds noted Other: Incision c/d/i. No surrounding redness/warmth. No hematoma. Mild ecchymosis. No wound dehiscence Neuro: Cognition (Neuro): normal cognition Other: NV intact. Moves toes. Sensation intact to light touch. +ankle dorsiflexion/plantarflexion. Extrem: Right lower extremity: normal to inspection Left lower extremity: normal to inspection, normal capillary refill, knee, lower leg (Negative Peyman's Sign ), ankle (+ankle dorsiflexion/plantarflexion ) and foot (2+ pedal pulses. ) Other: Incision left TKA dressing c/d/i. No hematoma. No signs of infection. No wound dehiscence. Psych: Mental Status: mental status grossly normal DS: Data Data Completed and Pending Labs on day of discharge: Labs from last 24 hours 11/15/20 05:24 Sodium 137 Potassium 3.6 Chloride 103 Carbon Dioxide 29 Anion Gap 5 L BUN 15 Creatinine 0.70 Estim Creat Clear Calc 67 Estimated GFR > 60 Glucose 108 H Calcium 9.4 Magnesium 1.7 Discharge Plan Discharge Attending physician on discharge: Charles Sewell Consulting providers: Pati Welsh Discharging Clinician: Charles Sewell Anticipated Discharge Date/Time: 11/15/20 17:00 Patient Disposition: Home Health Service Activity: may shower and no driving Diet: as tolerated Wound Care Instructions: follow printed instructions Discharge Instructions: Post Op Total Knee Replacement Instructions Dr. Charles Sewell [phone] ?Your dressing will be changed prior to your discharge. You will be sent home with one additional dressing to be changed in 5 days by the home health RN. Your lalitha will be removed on the 14th day after surgery and steri-strips will be placed. ?You may shower with your dressing but do not submerge in a bat
== END 2020-11-15 12:20 | disposition home health service (06) ==
LOC: ANHSURGERY 16:28 → ANH2MED 16:28
PROVIDERS: Hospitalist; Admitting Provider Orthopaedic Surgery; PCP Family Medicine; Visit Provider Orthopaedic Surgery
PROC: (CPT 27447; principal; 2020-11-12 07:30)
DX: M17.0 Bilateral primary osteoarthritis of knee (principal); G89.18 Other acute postprocedural pain; J44.9 Chronic obstructive pulmonary disease, unspecified; J96.11 Chronic respiratory failure with hypoxia; I11.0 Hypertensive heart disease with heart failure; I50.32 Chronic diastolic (congestive) heart failure; G25.81 Restless legs syndrome; M54.9 Dorsalgia, unspecified; G89.21 Chronic pain due to trauma; K59.00 Constipation, unspecified; G47.33 Obstructive sleep apnea (adult) (pediatric); F32.9 Major depressive disorder, single episode, unspecified; E66.9 Obesity, unspecified; Z68.34 Body mass index [BMI] 34.0-34.9, adult; Z79.51 Long term (current) use of inhaled steroids; Z86.73 Personal history of transient ischemic attack (TIA), and cerebral infarction without residual deficits; Z86.19 Personal history of other infectious and parasitic diseases; Z87.891 Personal history of nicotine dependence; F12.90 Cannabis use, unspecified, uncomplicated; Z99.89 Dependence on other enabling machines and devices
CPT/HCPCS: 27447; 20610; 64447; 36415; 73560; 80048; 83735; 85025; 97110; 97116; 97161; 97165; 97530; 97535; A9270; C1713; C1776; G0378; J0171; J0690; J1040; J1100; J1170; J1885; J2250; J2270; J2590; J2704; J2795; J3010; J3370; J3480; J7120

== ENCOUNTER → 2021-03-03 11:13 | Outpatient (CLI) | payer MEDICARE, OTHER, SELFPAY ==
--- NOTE | ~2021-03-03 | MR_ITS ---
EXAMINATION: MR lumbar spine wo con DATE: 03/03/2021 11:44 INDICATION: Low back pain. TECHNIQUE: Magnetic resonance imaging (MRI) of the lumbar spine was performed without intravenous con trast. Sequences included sagittal T2-weighted FSE, sagittal STIR FSE, sagittal T1-weighted FSE, and axial T2-weighted FSE. COMPARISON: Lumbar spine MRI 12/30/2015 FINDINGS: There is 3 degrees dextrocurvature of lumbar spine. There is a chronic burst fracture of L1 with 4/5 loss of height centrally, retropulsion of bone 3 mm into central spinal canal, and focal ky phosis. There is 3 mm anterolisthesis of L4 on L5. There is moderately decreased disc height at T12-L 1, L1-L2, and L3-L4 and mildly decreased disc height at L4-L5. The distal spinal cord signal intensit y is normal. The conus medullaris is at L1. The following disc levels are specifically discussed: L1-L2: The disc is bulging. There is mild bilateral facet joint osteoarthritis. There is moderate sofy ateral neural foraminal stenosis. There is mild central canal stenosis. L2-L3: The disc is bulging. There is mild bilateral facet joint osteoarthritis. There is mild bilater al neural foraminal stenosis. There is mild central canal stenosis. L3-L4: The disc is bulging. There is severe bilateral facet joint osteoarthritis. There is mild bilat eral neural foraminal stenosis. There is mild central canal stenosis. L4-L5: The disc is bulging. There is severe bilateral facet joint osteoarthritis. There is mild bilat eral neural foraminal stenosis. There is mild central canal stenosis. L5-S1: The disc does not extend beyond the endplate margin. There is severe bilateral facet joint ost eoarthritis. There is mild bilateral neural foraminal stenosis. There is no central canal stenosis. IMPRESSION: 1. Moderate lumbar spondylosis, stable from 12/30/2015. Reviewed, dictated and finalized at location A.
== END ==
PROVIDERS: PCP Family Medicine; Visit Provider Nurse Practitioner Family
DX: M47.896 Other spondylosis, lumbar region (principal)
CPT/HCPCS: 72148

== ENCOUNTER 2021-08-20 09:57 | Outpatient (CLI) | payer MEDICARE, OTHER, SELFPAY ==
[2021-08-20 11:11] LABS: Basophils Absolute Auto 0.1 K/mm3 (0.0-0.1); Basophils Percent Auto 0.7 % (0.2-1.2); Eosinophils Absolute Auto 0.2 K/mm3 (0-0.3); Eosinophils Percent Auto 1.9 % (0-4.4); Hematocrit 40.5 % (37.0-47.0); Hemoglobin 13.7 g/dL (12.0-15.0); Immature Granulocyte Absolute 0.03 K/mm3 (0.00-0.031); Immature Granulocyte Percent A 0.3 % (0-0.5); Lymphocytes Absolute Auto 2.25 K/mm3 (0.9-3.2); Lymphocytes Percent Auto 19.9 % (18.3-44.2); Mean Corpuscular HGB Conc 33.8 g/dl (32-36); Mean Corpuscular Hemoglobin 29.3 pg (26-34); Mean Corpuscular Volume 86.7 fl (80-100); Mean Platelet Volume 9.5 fl (7.4-10.4); Monocytes Absolute Auto 0.7 K/mm3 (0.1-0.6); Monocytes Percent Auto 6.3 % (2.6-8.5); Neutrophils Percent Auto 70.9 % (45.5-73.1); Platelet Count Result 297 k/mm3 (150-375); Red Blood Count 4.67 M/mm3 (4.2-5.4); Red Cell Distribution Width 13.4 % (11.5-14.5); White Blood Count 11.3 K/mm3 (4.5-10.0)
[2021-08-20 11:20] LABS: Add Urine Microscopic? YES; Appearance Urine Clear (Clear); Bilirubin Urine Negative (Negative); Blood Urine 3+ (Negative); Color Urine Amber (Yellow); Glucose Urine UA Negative (Negative); INR 1.2; Ketones Urine Negative (Negative); Leukocyte Esterase Ur Trace LEU/UL (Negative); Mucus Urine Rare /lpf; Nitrate Urine Negative (Negative); Protein Urine Negative (Negative); Prothrombin Time 14.7 Seconds (11.1-14.7); RBC Urine >75 /hpf (0-2); Specific Grav Ur 1.015 (1.001-1.035); Urobilinogen Urine Negative mg/dL (<2.0)
[2021-08-20 11:21] LABS: Partial Thromboplastin Time 28.5 SECONDS (22.3-36.8)
[2021-08-20 11:22] LABS: Albumin Level 4.4 g/dL (3.5-5.1); Anion Gap 7 mmol/L (8-16); Blood Urea Nitrogen 14 mg/dL (7-17); Calcium 9.8 mg/dL (8.4-10.2); Carbon Dioxide 26 mmol/L (22-30); Chloride 107 mmol/L (98-107); Estimated Glomerular Filt Rate > 60; Glucose 99 mg/dL (65-110); Hemoglobin A1C 5.5 % (<5.7); Sodium 140 mmol/L (137-145); Urine Cotinine NEGATIVE
== END 2021-08-20 09:58 | disposition home or self-care (01) ==
LOC: ANHSURGERY 10:01
PROVIDERS: PCP Family Medicine; Visit Provider Orthopaedic Surgery
DX: M17.11 Unilateral primary osteoarthritis, right knee (principal); Z01.818 Encounter for other preprocedural examination
CPT/HCPCS: 80048; 80307; 81001; 82040; 83036; 85025; 85610; 85730; 87081

== ENCOUNTER → 2021-08-30 | Outpatient (CLI) | payer MEDICARE, OTHER, SELFPAY ==
[2021-08-30 16:46] LABS: SARS-CoV-2 RNA PCR Negative
== END ==
PROVIDERS: PCP Family Medicine; Visit Provider Orthopaedic Surgery
DX: Z01.812 Encounter for preprocedural laboratory examination (principal); Z20.822 Contact with and (suspected) exposure to COVID-19
CPT/HCPCS: C9803; U0003; U0005

== ENCOUNTER 2021-09-02 00:40 | Day surgery (SDC) | payer MEDICARE, OTHER, SELFPAY ==
[2021-08-20 10:06] VITALS: BMI 33.9
--- NOTE | 2021-08-20 10:31 | PC.NURSE ---
Addendum entered by Nabila Vaughn RN 08/20/21 10:36: COVID TESTING 08/30/21 AT 0900 Original Note: Report to the Outpatient Waiting Room, entrance under the green pavilion located off [facility], at time __0900 on date _09/02/21 . OR Time: _1100 . - You will be asked a series of questions to screen for COVID 19 for your protection. - A mask is required within the hospital. - No visitors are allowed at this time. Preoperative COVID Testing Requirements: No COVID Test needed if: (proof is required; if not received patient will have Rapid Test prior to entry) - Patient has received COVID Vaccine at least 14 days prior to procedure date or - Patient has positive COVID test result within last 90 days of surgery date. COVID Test needed if above criteria is not met If not COVID vaccinated a COVID test must be conducted within 72 hours of surgery and patient is asked to isolate self from time of testing until procedure. You will go to the [email or web address] [facility] Testing Site for your COVID testing. The [email or web address] [facility] Testing site is located at the corner of [address] [facility]. You will only be called if COVID results are positive and your surgeon may reschedule your elective surgery date. Patients may have clear liquids (water, carbonated beverages, clear teas, apple juice) until 3 hours prior to surgery with a maximum of 20 ounces. - No food from midnight until time of surgery (8:00 AM) Take the following medications with a SIP of water the morning of surgery: ___INHALER IF NEEDED Medications to discontinue per physician ____IBUPROFEN PER DR DORSEY Date to take last dose Please no make-up, nail kiswahili, hairspray, perfume, deodorant, or body powder the day of surgery. No jewelry (including any body piercings) or valuables the day of surgery, leave them at home. Please take a shower or bath the night before, or the morning of, surgery with an antibacterial soap. Wear comfortable, loose fitting clothing. Children are encouraged to wear pajamas. - Jewelry must be removed prior to entering the operating room. Rings and piercings that are not removed may be cut off. - The hospital will not accept responsibility for valuables. - Please leave all valuables, including medications, at home the day of surgery. If you are going home after surgery, a licensed caterpillar driver must drive you home. - NO public transportation without another adult. - We recommend that an adult stay with you for 24 hours following discharge. - We also recommend that you do not drive, make important decision, drink alcoholic beverages, or take any drugs that were not prescribed by your health care provider for at least 24 hours after your discharge time. Follow any additional instructions given to you from your surgeon. VERBAL instructions given to _PATIENT and asked if any additional questions and then verbalized understanding. Patient advised to call surgeon office or pre surgery nurse liaison [phone] if any additional questions.
[2021-08-20 10:45] VITALS: BP 136/78; PULSE 83; RESP 18; TEMP 37.1; O2SAT 98
[2021-09-02] VITALS (20 sets, daily range): BP systolic 107–179; BP diastolic 53–94; PULSE 79–112; RESP 12–20; TEMP 36.5–37.3; O2SAT 95–100; BMI 33.5
--- NOTE | ~2021-09-02 | XR_ITS ---
EXAMINATION: XR knee RT 2V DATE: 09/02/2021 11:48 POURED CONCRETE WALL TECHNICIAN INDICATION: Right total knee arthroplasty TECHNIQUE: 2 views right knee FINDINGS: There is a total knee arthroplasty in expected position. Subcutaneous gas with fluid and a ir in the joint and overlying skin lalitha are consistent with recent surgery. No evidence of peripro sthetic fracture. IMPRESSION: 1. Recent right total knee arthroplasty. Reviewed, dictated and finalized at location B. ED CONCRETE WALL TECHNICIAN
--- NOTE | 2021-09-02 07:48 | WPDHPUPDATE1 ---
History and Physical Update Update Date/Time: 09/02/21 07:48 History and Physical has been reviewed, including an updated exam of the patient. There are NO changes in the patient's condition. Risks, benefits, and alternatives have been discussed and questions answered. Patient agrees to proceed with procedure.
[2021-09-02] MEDS: ACETAMINOPHEN 500 MG TABLET 1000 MG PO ×2 (07:51→16:26)
[2021-09-02] MEDS: LACTATED RINGERS 1,000 ML 30 ML IV CONT ×2 (08:00→11:11)
[2021-09-02] MEDS: TRANEXAMIC ACID 1,000MG/ISO100 1,000 MG/100 ML BAG 200 MG IVPB (08:03)
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
[2021-09-02] MEDS: ceFAZolin 2 GM/D5W 50 ML 2 GM/50 ML BAG IVPB ×3 (08:30→23:52)
--- NOTE | 2021-09-02 08:31 | WPDANESPNB ---
Anes - Peripheral Nerve Block Date/Time: 09/02/21 08:31 I have discussed with the patient/family/POA the placement of a peripheral nerve block for post-operative pain management, including associated risks, benefits, complications, and side effects. Alternative methods of post-operative analgesia were detailed. Questions were solicited and answers provided to the satisfaction of the patient/family/POA. Time-Out: A pre-procedural Time-Out was completed immediately before starting the procedure and confirmed: Patient Identification, Site, Procedure, Patient Position and the Availability of Requisite Equipment. Clinical Indications: Acute post-operative pain management requested by the operative surgeon. Nerve Block Insertion Note Anes-nerve block: adductor canal right Patient position: supine Skin prep: chlorhexidine Needle: 22 gauge, stimulating, insulated echogenic needle. Needle length: 80 mm Technique: ultrasound Technique comment: mid2mg [id number] Injectate: bupivacaine 0.5% with epi 5 mcg/ml (30ml) and dexamethasone (mg) (4) Observations: tolerated well Complications: none Procedure start time:: 817 Procedure end time:: 824
[2021-09-02] MEDS: amLODIPine BESYLATE 5 MG TABLET PO (08:55)
[2021-09-02] MEDS: GENTAMICIN BONE CEMENT REFOBACIN 1 EACH TOPICAL (10:05)
--- NOTE | 2021-09-02 11:18 | P.OP_ITS ---
Procedure Note - Detailed Date of Procedure 09/02/21 Pre-op Diagnosis right knee DJD Post-op Diagnosis same Procedure Performed R TKA Surgeon Charles Sewell MD Anesthesia general Description of Procedure THE RIGHT KNEE WAS PREPPED AND DRAPED IN THE STERILE FASHION. THERE WAS A 10 DEGREE FLEXION CONTRACTURE. A MIDLINE SKIN INCISION WAS MADE. A MEDIAL PARAPATELLAR ARTHROTOMY WAS MADE. THE PATELLA WAS EVERTED. THERE WAS TRICOMPARTMENT DJD. THERE WAS MINIMAL PATELLA DJD. AN INTRAMEDULLARY NISHANT WAS PLACED IN THE FEMUR. A DISTAL FEMORAL CUT WAS MADE IN 5 DEGREES OF VALGUS REMOVING APPROXIMATELY 9 MM OF BONE FROM THE DISTAL FEMUR. THE FEMUR WAS SIZED TO 60. A 60 FEMORAL CUTTING BLOCK WAS PLACED IN 3 DEGREES OF EXTERNAL ROTATION AND IN ALIGNMENT WITH YULISSA'S LINE AND THE TRANSEPICONDYLAR AXIS. ANTERIOR POSTERIOR AND CHAMFER CUTS WERE MADE. THE CUTS WERE EXCELLENT. NEXT AN INTRAMEDULLARY CUTTING GUIDE WAS PLACED IN THE TIBIA. A TRANS TIBIAL CUT WAS MADE ALONG THE LONG AXIS OF THE TIBIA. APPROXIMATELY 10 MM OF BONE WAS REMOVED FROM THE HIGH SIDE OF THE TIBIA. THE TIBIA WAS THEN PLANED TO A SMOOTH SURFACE. POSTERIOR FEMORAL OSTEOPHYTES WERE REMOVED FROM THE FEMORAL CONDYLES. A 67 TIBIAL TRIAL WAS PLACED IN ALIGNMENT WITH THE 1/3 MEDIAL ASPECT OF THE TIBIAL TUBERCLE. THEN A 60 FEMORAL TRIAL COMPONENT WAS PLACED. BOTH HAD EXCELLENT FITS. EVENTUALLY A 10 MM CR POLYETHYLENE TRIAL COMPONENT WAS PLACED. THE KNEE WAS TAKEN THROUGH A RANGE OF MOTION. THE KNEE CAME OUT TO FULL EXTENSION. THERE WAS NO ABNORMAL TILT TO THE PATELLA. THERE WAS GOOD A/P AND VARUS/VALGUS STABILITY. THERE WAS NO EXCESSIVE ROLL BACK WITH FLEXION. THE TRIAL COMPONENTS WERE REMOVED. THEN A 60 FEMORAL COMPONENT AND 67 TIBIAL COMPONENT WITH A 10 CR POLYETHYLENE COMPONENT WERE CEMENTED INTO PLACE. ONCE THE CEMENT WAS HARD THE KNEE WAS TAKEN THROUGH A ROM AGAIN AND FOUND TO BE STABLE WITH NO PATELLA TILT NO EXCESSIVE ROLL BACK WITH FLEXION AND GOOD STABILITY WITH COMPLETE AND FULL EXTENSION. THE KNEE WAS IRRIGATED WITH STERILE BETADINE AND WATER FOR ABOUT 3 MINUTES. THE BLEEDERS WERE CAUTERIZED. THE ARTHROTOMY WAS REPAIRED WITH NUMBER 1 VICRYL. THE SUB CUTANEOUS LAYER WITH 2-0 VICRYL AND THE SKIN WITH A 3-0 QUIL AND DERMABOND. THE WOUND WAS WASHED AND A STERILE DRESSING WAS APPLIED. JOSSIE LESTER WAS EXTUBATED. Estimated Blood Loss -50.0 Pathology none sent Complications No immediate complications Condition stable Disposition PACU
[2021-09-02] MEDS: fentaNYL CITRATE INJ (*CRX) 100 MCG/2 ML VIAL 25 MCG IV PUSH ×8 (11:28→11:58)
[2021-09-02] MEDS: HYDROmorphone HCL INJ (*CRX) 1 MG/ML SYR 0.5 MG IV PUSH ×4 (12:10→12:44)
--- NOTE | 2021-09-02 13:05 | PC.NURSE ---
This patient, Petty Marsh, was admitted to -. Patient/family oriented to hospital policies and general routines including ID bracelet, bed and alarms, visiting hours, pain management, procedures, bathroom and other care routines, personal items, smoking policy, room service/diet, and visiting hours. Information on how to activate the Rapid Response Team has been discussed. Patient/Family are encouraged to report perceived risks to care and to ask questions if they do not understand what they are told or what they should do.
[2021-09-02] MEDS: KETOROLAC 15 MG/ML VIAL (*BKC) IV PUSH ×3 (13:33→23:52)
[2021-09-02] MEDS: SODIUM CHLORIDE 0.9% IV 1,000 ML 125 ML IV CONT (14:09)
[2021-09-02] MEDS: oxyCODONE HCL (*CRX) 5 MG TAB IR 10 MG PO (14:57)
[2021-09-02] MEDS: SENNA/DOCUSATE SODIUM TABLET 2 TAB PO (16:25)
[2021-09-02] MEDS: FAMOTIDINE 20 MG TABLET PO (20:53)
[2021-09-02] MEDS: oxyCODONE/ACETAMINOPHEN (*CRX) 5-325 MG TABLET 1 TABLET PO (21:01)
[2021-09-03] VITALS: BP 107/52; PULSE 68; RESP 18; TEMP 36.8; O2SAT 98
[2021-09-03 02:44] VITALS: RESP 18
[2021-09-03 05:41] LABS: Basophils Percent Auto 0.3 % (0.2-1.2); Eosinophils Percent Auto 0.2 % (0-4.4); Hematocrit 33.2 % (37.0-47.0); Hemoglobin 10.7 g/dL (12.0-15.0); Immature Granulocyte Absolute 0.05 K/mm3 (0.00-0.031); Immature Granulocyte Percent A 0.4 % (0-0.5); Lymphocytes Percent Auto 15.2 % (18.3-44.2); Mean Corpuscular HGB Conc 32.2 g/dl (32-36); Mean Corpuscular Hemoglobin 29.3 pg (26-34); Mean Platelet Volume 9.7 fl (7.4-10.4); Monocytes Absolute Auto 1.3 K/mm3 (0.1-0.6); Monocytes Percent Auto 9.9 % (2.6-8.5); Neutrophils Absolute Auto 9.7 K/mm3 (1.3-6.7); Platelet Count Result 232 k/mm3 (150-375); Red Blood Count 3.65 M/mm3 (4.2-5.4); Red Cell Distribution Width 14.5 % (11.5-14.5); White Blood Count 13.1 K/mm3 (4.5-10.0)
[2021-09-03 05:45] LABS: Anion Gap 6 mmol/L (8-16); Blood Urea Nitrogen 17 mg/dL (7-17); Calcium 8.4 mg/dL (8.4-10.2); Carbon Dioxide 24 mmol/L (22-30); Chloride 109 mmol/L (98-107); Estimated CRCL calculation 63 ml/min; Estimated Glomerular Filt Rate > 60; Glucose 129 mg/dL (65-110); Potassium 3.7 mmol/L (3.4-5.0); Sodium 139 mmol/L (137-145)
[2021-09-03] MEDS: KETOROLAC 15 MG/ML VIAL (*BKC) IV PUSH ×2 (05:48→11:26)
[2021-09-03 06:00] VITALS: BP 105/52; PULSE 64; RESP 18; TEMP 36.9; O2SAT 100
[2021-09-03 06:06] VITALS: RESP 18
--- NOTE | 2021-09-03 07:06 | P.PNAN_ITS ---
Anes - Prog Note Post-Op Date/Time: 09/03/21 07:06 Cardiovascular status: normal Respiratory status: normal Airway patency: baseline Mental status: baseline (states no memory issues like last time) Post-Op hydration status: normal Vital Signs: Last Vital Signs Temp 98.5 F 09/03/21 06:00 Pulse 64 09/03/21 06:00 Resp 18 09/03/21 06:06 BP 105/52 L 09/03/21 06:00 Pulse Ox 100 09/03/21 06:00 Pain Score (VAS): 4 pain med helps I/O: Intake & Output 09/02/21 09/02/21 09/03/21 15:59 23:59 07:59 Intake Total 150 590 250 Output Total 500 200 Balance -350 390 250 Laboratory Tests 09/03/21 05:26 09/03/21 05:26 09/02/21 09/03/21 09/03/21 08:16 05:26 05:26 WBC 13.1 H RBC 3.65 L Hgb 10.7 L D Hct 33.2 L MCV 91.0 MCH 29.3 MCHC 32.2 RDW 14.5 Plt Count 232 MPV 9.7 Immature Gran % (Auto) 0.4 Neut % (Auto) 74.0 H Lymph % (Auto) 15.2 L [place] % (Auto) 9.9 H Eos % (Auto) 0.2 Baso % (Auto) 0.3 Lymph # (Auto) 2.00 [place] # (Auto) 1.3 H Eos # (Auto) 0.0 Baso # (Auto) 0.0 Abs Immat Gran (auto) 0.05 H Absolute Neuts (auto) 9.7 H Absolute Nucleated RBC 0.0 Nucleated RBC % 0.0 Sodium 139 Potassium 3.7 Chloride 109 H Carbon Dioxide 24 Anion Gap 6 L BUN 17 Creatinine 0.70 Estim Creat Clear Calc 63 Estimated GFR > 60 Glucose 129 H Calcium 8.4 Blood Type O Positive Antibody Screen Negative Post-procedural complaints: none Patient Feedback: Patient satisfied with anesthetic care.
[2021-09-03] MEDS: ceFAZolin 2 GM/D5W 50 ML 2 GM/50 ML BAG IVPB (07:54)
[2021-09-03] MEDS: oxyCODONE HCL (*CRX) 5 MG TAB IR 10 MG PO ×2 (07:54→13:29)
[2021-09-03] MEDS: LOSARTAN POTASSIUM 50 MG TABLET PO (07:59)
[2021-09-03] MEDS: SENNA/DOCUSATE SODIUM TABLET 2 TAB PO (07:59)
[2021-09-03] MEDS: FAMOTIDINE 20 MG TABLET PO (07:59)
[2021-09-03] MEDS: ASPIRIN 325 MG ENTERIC TABLET 650 MG PO (08:00)
[2021-09-03 09:58] VITALS: BP 140/61; PULSE 54; RESP 16; TEMP 36.7; O2SAT 99
--- NOTE | 2021-09-03 10:46 | PM.PNORT ---
Progress Note: A&P Additional Plan POD 1 DOING WELL. OK TO DC HOME. F/U IN 3 WEEKS Subjective Subjective Date/Time Seen: 09/03/21 10:46 POD 1 DOING WELL. WALKED WELL WITH PT. NO CALF PAIN Exam Extrem: Other: VSS AFEBRILE DRESSING DRY NV INTACT NEG HOMANS SIGN CALF SOFT Objective Data Vital Signs Vital Signs: Vital Signs - 24 hr 09/02/21 11:11 09/02/21 11:15 09/02/21 11:30 Temperature 36.5 C Pulse Rate 104 H 96 102 H Respiratory Rate 15 12 13 Blood Pressure 123/91 H 143/64 H 139/64 Pulse Oximetry 100 100 100 09/02/21 11:45 09/02/21 12:00 09/02/21 12:10 Temperature Pulse Rate 112 H 110 H Respiratory Rate 12 12 Blood Pressure 179/87 H 166/83 H Pulse Oximetry 100 100 100 09/02/21 12:15 09/02/21 12:30 09/02/21 12:45 Temperature Pulse Rate 104 H 101 H 95 Respiratory Rate 12 12 12 Blood Pressure 146/75 H 147/75 H 126/65 Pulse Oximetry 99 100 100 09/02/21 12:55 09/02/21 13:05 09/02/21 13:20 Temperature 36.8 C 37.3 C 36.8 C Pulse Rate 92 95 92 Respiratory Rate 12 18 17 Blood Pressure 130/75 128/66 122/94 H Pulse Oximetry 100 100 100 09/02/21 14:15 09/02/21 15:15 09/02/21 16:15 Temperature 37.0 C 37.3 C 37.0 C Pulse Rate 88 96 92 Respiratory Rate 17 17 18 Blood Pressure 123/64 107/65 110/60 Pulse Oximetry 95 100 98 09/02/21 18:15 09/02/21 20:00 09/02/21 22:00 Temperature 36.9 C 36.9 C Pulse Rate 91 92 Respiratory Rate 18 18 18 Blood Pressure 130/53 L 130/60 Pulse Oximetry 99 98 09/02/21 22:44 09/03/21 00:00 09/03/21 02:44 Temperature 36.8 C Pulse Rate 68 Respiratory Rate 18 18 18 Blood Pressure 107/52 L Pulse Oximetry 98 09/03/21 06:00 09/03/21 06:06 09/03/21 09:58 Temperature 36.9 C 36.7 C Pulse Rate 64 54 L Respiratory Rate 18 18 16 Blood Pressure 105/52 L 140/61 Pulse Oximetry 100 99 Intake/Output Intake/Output: Intake & Output 08/31/21 09/01/21 09/02/21 09/03/21 23:59 23:59 23:59 23:59 Intake Total 740 420 Output Total 700 Balance 40 420 Meds/Results Medications: Active Medications Generic Name Dose Route Start Last Admin Trade Name Freq PRN Reason Stop Dose Admin Acetaminophen 1,000 mg 09/02/21 12:59 09/02/21 16:26 Acetaminophen 500 Mg Tablet PO 1,000 mg Q6H PRN Administration Pain Rated 1-3 Amlodipine Besylate 5 mg 09/02/21 21:00 09/02/21 08:55 Amlodipine Besylate 5 Mg Tablet PO 5 mg HS TRACEY Administration Aspirin 650 mg 09/03/21 09:00 09/03/21 08:00 Aspirin 325 Mg Enteric Tablet PO 650 mg DAILY TRACEY Administration Diazepam 5 mg 09/02/21 12:59 Diazepam (*Crx) 5 Mg Tablet PO Q8H PRN Spasms Diphenhydramine HCl 25 mg 09/02/21 12:59 Diphenhydramine Hcl Inj 50 Mg/Ml Vial IV PUSH Q6H PRN Itching Famotidine 20 mg 09/02/21 21:00 09/03/21 07:59 Famotidine 20 Mg Tablet PO 20 mg Q12HR TRACEY Administration Ketorolac Tromethamine 15 mg 09/02/21 12:59 09/03/21 05:48 Ketorolac 15 Mg/Ml Vial (*Bkc) IV PUSH 09/03/21 12:01 15 mg Q6HR TRACEY Administration Losartan Potassium 50 mg 09/03/21 09:00 09/03/21 07:59 Losartan Potassium 50 Mg Tablet PO 50 mg DAILY TRACEY Administration Naloxone HCl 0.1 mg 09/02/21 12:59 Naloxone Hcl 0.4 Mg/Ml Vial IV PUSH Q2M PRN Opiate Reversal Ondansetron HCl 4 mg 09/02/21 12:59 Ondansetron Inj 4 Mg/2 Ml Vial IV PUSH Q4H PRN Nausea And Vomiting Oxycodone HCl 10 mg 09/02/21 12:59 09/03/21 07:54 Oxycodone Hcl (*Crx) 5 Mg Tab Ir PO 10 mg Q4H PRN Administration Pain Rated 7-10 Oxycodone/Acetaminophen 1 tablet 09/02/21 12:59 09/02/21 21:01 Oxycodone/Acetaminophen (*Crx) 5-325 Mg Tablet PO 1 tablet Q4H PRN Administration Pain Rated 4-6 Polyethylene Glycol 17 gm 09/03/21 09:00 Polyethylene Glycol 3350 17 Gm Powd.Pack PO QAM [facility] Senna/Docusate Sodium 2 tab 09/02/21 17:00 09/03/21 07:59 Senna/Docusate Sodium Tablet PO 2 ta
--- NOTE | 2021-09-03 10:49 | PM.DS ---
DS: Admitting Diagnosis Discharge Date 09/03/21 Admitting Diagnosis R KNEE DJD DS: Discharge Diagnosis Discharge Diagnosis (1) S/P total knee arthroplasty: Qualifiers: Laterality: left Qualified Code(s): Z96.652 - Presence of left artificial knee joint Code(s): Z96.659 - Presence of unspecified artificial knee joint Status: Acute DS: Summary Hospital Course Reason for hospitalization: R TKA Hospital Course: PATIENT WAS ADMITTED S/P RIGHT TOTAL KNEE ARTHROPLASTY FOR POSTOPERATIVE MEDICAL MANAGEMENT, PAIN CONTROL AND MOBILIZATION WITH PHYSICAL AND OCCUPATIONAL THERAPY. THE PATIENT PROGRESSED WELL WITH PT/OT. LABS AND VITALS REMAINED STABLE AND PAIN WELL CONTROLLED. THE PATIENT HAS BEEN CLEARED TO BE DISCHARGED HOME. FOLLOW UP APPOINTMENT SCHEDULED. DISCHARGE INSTRUCTIONS DISCUSSED AT LENGTH WITH THE PATIENT. MEDICATIONS REVIEWED. Time spent discussing smoking cessation with patient: more than 10 minutes Status at Discharge Functional status at discharge: uses cane/walker Overall status at discharge: patient is not back to baseline Time Spent with Patient Time attestation: Total time spent providing and/or coordinating discharge services: Time spent: Less than 30 minutes DS: Data Data Completed and Pending Labs on day of discharge: Labs from last 24 hours 09/03/21 09/03/21 05:26 05:26 WBC 13.1 H RBC 3.65 L Hgb 10.7 L D Hct 33.2 L MCV 91.0 MCH 29.3 MCHC 32.2 RDW 14.5 Plt Count 232 MPV 9.7 Immature Gran % (Auto) 0.4 Neut % (Auto) 74.0 H Lymph % (Auto) 15.2 L [place] % (Auto) 9.9 H Eos % (Auto) 0.2 Baso % (Auto) 0.3 Lymph # (Auto) 2.00 [place] # (Auto) 1.3 H Eos # (Auto) 0.0 Baso # (Auto) 0.0 Abs Immat Gran (auto) 0.05 H Absolute Neuts (auto) 9.7 H Absolute Nucleated RBC 0.0 Nucleated RBC % 0.0 Sodium 139 Potassium 3.7 Chloride 109 H Carbon Dioxide 24 Anion Gap 6 L BUN 17 Creatinine 0.70 Estim Creat Clear Calc 63 Estimated GFR > 60 Glucose 129 H Calcium 8.4 Discharge Plan Discharge Patient Disposition: Home, Self-Care Discharge Instructions: CHRISTIANO SEWELL M.D. [facility] [address] [place] [address] POST OPERATIVE DISCHARGE INSTRUCTIONS FOLLOWING TOTAL KNEE REPLACEMENT SURGERY ? Your dressing will be changed prior to your discharge. You will be sent home with one additional dressing to be changed on post op day 7 by the home health RN. Your lalitha will be removed on the 14th day after surgery and steri-strips will be placed. Please practice good hand hygiene and do not touch your incision in order to prevent infection. ? You may shower with your dressing but do not submerge in a bath tub. ? Do not drive or operate machinery until you are released by Dr. Sewell. ? Do not walk without a walker for any reason until you are released by Dr. Sewell. ? Continue to use your ice machine. Please use a towel or pillow case to protect your skin before applying your ice machine. ? Do NOT place a pillow under your knee. You may use a pillow from the calf down if needed. This will prevent a flexion contracture postoperatively. ? You may begin use of your CPM machine at home if you have been given one pre-operatively. DO NOT USE WHILE YOU ARE SLEEPING. ? Your first post op appointment was sent to you via mail preoperatively. If you have any questions or are unable to make your appointment, please contact our office for scheduling questions. ? Your medications have been sent to your pharmacy. You have been sent home with pain medication. We have also sent you with a stool softener as narcotics can cause constipation. Please keep this in mind during your postoperative recovery. If you are not experiencing regular bowel movements, please contact our office for further instruction. ? Please contact our office with any questions/concerns r
== END 2021-09-03 13:49 | disposition home or self-care (01) ==
LOC: ANHSURGERY 07:22 → ANHSUROVER 13:16
PROVIDERS: PCP Family Medicine; Visit Provider Orthopaedic Surgery
PROC: (CPT 27447; principal; 2021-09-02 11:00)
DX: M17.11 Unilateral primary osteoarthritis, right knee (principal); G89.18 Other acute postprocedural pain; I11.0 Hypertensive heart disease with heart failure; I50.32 Chronic diastolic (congestive) heart failure; J44.9 Chronic obstructive pulmonary disease, unspecified; E11.9 Type 2 diabetes mellitus without complications; E78.5 Hyperlipidemia, unspecified; G89.29 Other chronic pain; F32.9 Major depressive disorder, single episode, unspecified; G25.81 Restless legs syndrome; Z96.652 Presence of left artificial knee joint; Z86.19 Personal history of other infectious and parasitic diseases; Z86.73 Personal history of transient ischemic attack (TIA), and cerebral infarction without residual deficits; Z87.828 Personal history of other (healed) physical injury and trauma; E66.9 Obesity, unspecified; Z68.33 Body mass index [BMI] 33.0-33.9, adult; Z87.891 Personal history of nicotine dependence; F12.90 Cannabis use, unspecified, uncomplicated
CPT/HCPCS: 27447; 64447; 36415; 73560; 80048; 85025; 86850; 86900; 86901; 97110; 97116; 97161; 97165; 97530; 97535; A9270; C1713; C1776; J0171; J0690; J1100; J1170; J1885; J2250; J2270; J2370; J2405; J2704; J2795; J3010; J7030; J7120

== ENCOUNTER → 2022-02-26 09:41 | Outpatient (CLI) | payer MEDICARE, OTHER, SELFPAY ==
--- NOTE | ~2022-02-26 | XR_ITS ---
XR hip BI 2V w AP pelvis 02/26/2022 09:58 Indication: Bilateral hip pain for 2 years Procedure: 3 views of the hips including AP pelvis Comparison: Comparison to multiple prior studies sequentially, with oldest reviewed study dated 11/02. Findings: There is bilateral osteoarthritis of the hips, severe on the left moderate on the right. Pe lvic rings are intact. Osteopenia. Sacral foramen are symmetric. No acute fracture or traumatic malal ignment. There is lower lumbar spondylosis. There is a catheter in the right mid abdomen with the tip overlying L4 vertebra. Impression: 1: Bilateral osteoarthritis of the hips, left greater than right. Reviewed, dictated and finalized at location B. Impression: 1: Bilateral osteoarthritis of the hips, left greater than right.
== END ==
PROVIDERS: PCP Family Medicine; Visit Provider Internal Medicine
DX: M45.0 Ankylosing spondylitis of multiple sites in spine (principal); M46.1 Sacroiliitis, not elsewhere classified; M16.0 Bilateral primary osteoarthritis of hip
CPT/HCPCS: 73521

== ENCOUNTER → 2022-04-03 15:23 | Outpatient (CLI) | payer MEDICARE, OTHER, SELFPAY ==
--- NOTE | ~2022-04-03 | XR_ITS ---
XR chest 2V DATE: 04/03/2022 15:37 INDICATION: Cough TECHNIQUE: 2 views COMPARISON: 11/03/2019 2 view chest FINDINGS: Normal heart size. There is aortic calcification and mild aortic unfolding. No hilar or m ediastinal enlargement. No pulmonary infiltrate or consolidation, pulmonary vascular congestion or p leural effusion of pneumothorax. Status post cholecystectomy. Severe probable burst fracture deformity of L1. IMPRESSION: No active cardiopulmonary disease Severe probable burst fracture deformity of L1 Reviewed, dictated and finalized at location B.
== END ==
PROVIDERS: PCP Family Medicine; Visit Provider Family Medicine
DX: R05.9 Cough, unspecified (principal)
CPT/HCPCS: 71046

== ENCOUNTER 2023-04-09 13:44 | Emergency (ER) | payer MEDICARE, SELFPAY ==
--- NOTE | ~2023-04-09 | XR_ITS ---
XR foot RT min 3V 04/09/2023 14:21 Indication: Lateral foot pain after fall Procedure: 4 views left foot Comparison: No prior studies for comparison. Findings: There is mildly displaced oblique intra-articular fracture fifth metatarsal proximally. The re are healed second, third and fourth metatarsal shaft fractures. There is surgical arthrodesis of t he first metatarsal phalangeal joint. Impression: 1: Acute nondisplaced oblique intra-articular fracture base of the fifth metatarsal. Reviewed, dictated and finalized at location B. Impression: 1: Acute nondisplaced oblique intra-articular fracture base of the fifth metata rsal.
[2023-04-09 14:01] VITALS: BP 100/56; PULSE 60; RESP 18; TEMP 37; O2SAT 96
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
== END 2023-04-09 15:26 | disposition home or self-care (01) ==
PROVIDERS: Emergency Provider Nurse Practitioner; PCP Family Medicine
DX: S92.354A Nondisplaced fracture of fifth metatarsal bone, right foot, initial encounter for closed fracture (principal); I11.0 Hypertensive heart disease with heart failure; I50.32 Chronic diastolic (congestive) heart failure; J44.9 Chronic obstructive pulmonary disease, unspecified; E78.5 Hyperlipidemia, unspecified; E11.9 Type 2 diabetes mellitus without complications; Z86.73 Personal history of transient ischemic attack (TIA), and cerebral infarction without residual deficits; Z87.891 Personal history of nicotine dependence; Z79.899 Other long term (current) drug therapy; X50.0XXA Overexertion from strenuous movement or load, initial encounter; Y92.009 Unspecified place in unspecified non-institutional (private) residence as the place of occurrence of the external cause
CPT/HCPCS: 73630; 99213; G0463

== ENCOUNTER 2023-04-28 14:39 | Outpatient (CLI) | payer MEDICARE, SELFPAY ==
--- NOTE | 2023-04-28 14:53 | ECHO_ITS ---
Patient Info Name: Petty Marsh Age: 68 years : 1955 Gender: Female Ht: 61 in Wt: 185 lbs BSA: 1.94 m2 HR: 68 bpm BP: 130 / 75 mmHg Heart Rhythm: Sinus Rhythm Technical Quality: Good Exam Date: 04/28/2023 3:02 PM Exam Location: [facility] Patient Status: Outpatient Admit Date: 04/28/2023 Staff Ordering Physician: Renee Torres PA-C Cpr Ambulance Driver: Mihcelle Richey RDCS Attending Provider: Renee Torres PA-C Referring Physician: Brian JONES; Exam Type: CA echo doppler color flow Study Info Indications - cardiac murmur Complete two-dimensional, color flow and Doppler transthoracic echocardiogram is performed. Summary 1. Complete two-dimensional, color flow and Doppler transthoracic echocardiogram is performed. 2. Left ventricular chamber dimension is normal. 3. Left ventricular systolic function is normal, estimated at 60-65%. 4. There is mildly increased left ventricular wall thickness. 5. The left ventricular diastolic function is grade I diastolic dysfunction. 6. There is no aortic valve stenosis. 7. There is mild mitral valve regurgitation. 8. There is mild tricuspid valve regurgitation. 9. No pulmonary hypertension, estimated pulmonary arterial systolic pressure is 20 mmHg. Left Ventricle Left ventricular chamber dimension is normal. Left ventricular systolic function is normal, estimated at 60-65%. There is mildly increased left ventricular wall thickness. The left ventricular diastolic function is grade I diastolic dysfunction. Right Ventricle Right ventricular chamber dimension is normal. Right ventricular systolic function is normal. Left Atria Left atrial chamber dimension is normal. Right Atria Right atrial chamber dimension is normal. Aortic Valve The aortic valve is not well visualized. There is no aortic valve stenosis. There is no aortic valve regurgitation. Pulmonic Valve The pulmonic valve is not well visualized. Mitral Valve The mitral valve has normal leaflets. There is mild mitral valve regurgitation. Tricuspid Valve The tricuspid valve leaflets are normal. There is mild tricuspid valve regurgitation. No pulmonary hypertension, estimated pulmonary arterial systolic pressure is 20 mmHg. Pericardium/Pleural The pericardium appears normal. There is trivial pericardial effusion. Inferior Vena Cava Normal inferior vena cava with >50% collapse upon inspiration consistent with normal right atrial pressure, 5 mmHg. Aorta The aortic root size at the sinus of Valsalva is normal. There is mild aortic atherosclerosis. Left Ventricular Outflow Tract Name Value Normal LVOT 2D LVOT Diameter 2.0 cm LVOT Doppler LVOT Peak Gradient 4 mmHg LVOT Mean Gradient 3 mmHg LVOT VTI 27 cm LVOT VTI/AV VTI Ratio 0.7 LVOT Stroke Volume 82 ml LVOT CO 4.4 l/min LVOT CI 2.3 l/min/m2 Pulmonic Valve Name Value Normal ---
== END 2023-04-28 14:40 | disposition home or self-care (01) ==
PROVIDERS: PCP Family Medicine; Visit Provider Physician Assistant
DX: R01.1 Cardiac murmur, unspecified (principal); I08.1 Rheumatic disorders of both mitral and tricuspid valves
CPT/HCPCS: 93306

== ENCOUNTER 2023-08-04 14:13 | Outpatient (CLI) | payer MEDICARE, SELFPAY ==
--- NOTE | ~2023-08-04 | DEXA_ITS ---
Bone Density Report Name: PATY CHAMBERLAIN Age: 68 Sex: Female Ethnicity: White Date of : 1955 Indication: postmenopausal; screening for osteoporosis; height loss; inflammatory bowel disease; hysterectomy; Referring Provider: TAHMINA FAITH Study: Bone densitometry was performed. Exam Date: August 04, 2023 Accession number: [id number] Bone Density: Region BMD T-score Z-score Classification AP Spine(L1-L4) 1.103 0.5 2.5 Normal Femoral Neck (Right) 0.615 -2.1 -0.4 Osteopenia Total Hip (Right) 0.787 -1.3 0.1 Osteopenia World Health Organization criteria for BMD impression classify patients as: Normal (T-score at or above -1.0), Osteopenia (T-score between -1.0 and -2.5), or Osteoporosis (T-score at or below -2.5). 10-year Fracture Risk(1): Major Osteoporotic Fracture 11% Hip Fracture 1.8% Reported Risk Factors: [place] (), Neck BMD=0.615, BMI=37.6 (1) FRAX(R) Version 3.08. Fracture probability calculated for an untreated patient. Fracture probability may be lower if the patient has received treatment. Previous Exams: Region Exam Age BMD T-score BMD Change BMD Change Date g/cm2 vs Baseline vs Previous Total Hip(Right) 08/04/2023 68 0.787 -1.3 -0.064 (-7.5%) -0.064 (-7.5%) 10/10/2020 65 0.851 -0.7 *Denotes significance at 95% confidence level, LSC for Total Hip = 0.027 g/cm2 Clinical Information Provided by Patient: Has used the following medications: MULTI Has the following medical conditions: Inflammatory bowel diseases, Hysterectomy Patient maximum height was 62 Menopause Age: 45 No regular weight bearing exercise Does not regularly consume dairy products Drinks caffeinated beverages Onset of menses at age 9 Number of children 2 Impression: The patient has low bone mass, based on the Right Femoral Neck T-score. The patient has an estimated ten-year risk of hip fracture of 1.8% and an estimated ten-year risk of major fracture of 11%, based on the WHO FRAX algorithm. The BMD for the Total Hip(Right) decreased, changing by -7.5% since the last DXA exam. Discussion: BONE DENSITY IS LOW AT ONE OR MORE SKELETAL SITES. This patient's lowest T-score is low at one or more skeletal sites. It meets the World Health Organization's (WHO) criteria for ?low bone mass? (T-score between -1.0 and -2.5). The patient's 10-year risk of fracture as calculated by FRAX is less than the threshold where pharmacological therapy is recommended by the National Osteoporosis Foundation (NOF). However, all treatment decisions require clinical judgment
--- NOTE | ~2023-08-04 | MM_ITS ---
EXAMINATION: MM screening yahir BI w mckenna HISTORY: Screening mammogram TECHNIQUE: Craniocaudal and mediolateral oblique 3-D tomosynthesis images were obtained and synthetic 2-D images were generated. CAD analysis was submitted and interpreted. COMPARISON: 10/10/2020, 12/17/2016 BREAST PARENCHYMAL COMPOSITION: There are scattered areas of fibroglandular density. FINDINGS: No suspicious mass, calcification, or architectural distortion are identified in either kyle ast to suggest malignancy. There has been no suspicious interval change. IMPRESSION: 1. No mammographic evidence of malignancy. 2. Recommend routine screening mammography in one year. BI-RADS Category 1: Negative Reviewed, dictated and finalized at location A. SCOURER
== END 2023-08-04 14:14 | disposition home or self-care (01) ==
LOC: ANHIMG 14:16
PROVIDERS: PCP Family Medicine; Visit Provider Physician Assistant
DX: Z12.31 Encounter for screening mammogram for malignant neoplasm of breast (principal); Z78.0 Asymptomatic menopausal state; M85.851 Other specified disorders of bone density and structure, right thigh
CPT/HCPCS: 77063; 77067; 77080

== ENCOUNTER 2023-08-24 01:05 | Day surgery (SDC) | payer MEDICARE, SELFPAY ==
[2023-08-05 13:18] VITALS: BMI 35.8
[2023-08-24 10:24] VITALS: BP 149/69; PULSE 94; RESP 18; TEMP 36.3; O2SAT 94; BMI 35.9
[2023-08-24] MEDS: LACTATED RINGERS 1,000 ML 150 ML IV CONT (10:47)
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
[2023-08-24 12:06] VITALS: BP 91/45; PULSE 77; RESP 21; O2SAT 96
[2023-08-24 12:16] VITALS: BP 119/53; PULSE 79; RESP 19; O2SAT 97
[2023-08-24 12:26] VITALS: BP 114/62; PULSE 75; RESP 15; O2SAT 98
== END 2023-08-24 12:39 | disposition home or self-care (01) ==
PROVIDERS: PCP Family Medicine; Visit Provider Internal Medicine Gastroenterology
PROC: 0DJD8ZZ Inspection of Lower Intestinal Tract, Via Natural or Artificial Opening Endoscopic (ICD-10-PCS; CPT 45378; principal; 2023-08-24 12:30)
DX: Z12.11 Encounter for screening for malignant neoplasm of colon (principal); K57.30 Diverticulosis of large intestine without perforation or abscess without bleeding; Z86.010 Personal history of colon polyps; Z80.0 Family history of malignant neoplasm of digestive organs; J96.11 Chronic respiratory failure with hypoxia; M54.9 Dorsalgia, unspecified; G89.29 Other chronic pain; I11.0 Hypertensive heart disease with heart failure; I50.32 Chronic diastolic (congestive) heart failure; J44.9 Chronic obstructive pulmonary disease, unspecified; E11.9 Type 2 diabetes mellitus without complications; E78.5 Hyperlipidemia, unspecified; F32.A Depression, unspecified; G47.33 Obstructive sleep apnea (adult) (pediatric); G25.81 Restless legs syndrome; Z79.891 Long term (current) use of opiate analgesic; Z86.19 Personal history of other infectious and parasitic diseases; E66.9 Obesity, unspecified; Z68.36 Body mass index [BMI] 36.0-36.9, adult; Z79.51 Long term (current) use of inhaled steroids; Z87.19 Personal history of other diseases of the digestive system; Z87.891 Personal history of nicotine dependence
CPT/HCPCS: 45380; 88305; J2704; J7120